=== PATIENT | male | born 1995 | race Caucasian/White ===

== ENCOUNTER 2023-05-24 02:24 | Observation (INO) | payer OTHER, SELFPAY ==
[2023-05-24] VITALS (8 sets, daily range): BP systolic 122–174; BP diastolic 55–77; PULSE 63–88; RESP 14–26; TEMP 37.1–38; O2SAT 97–100; BMI 21.2
--- NOTE | ~2023-05-24 | CT_ITS ---
CT of the Abdomen and Pelvis: Indication: Abdominal pain Technique: 2.5 mm axial scans were obtained through the abdomen and pelvis following intravenous adm inistration of 100 cc of Omnipaque 350. Dose reduction technique was used on this scan by utilizing a utomated exposure control and iterative reconstruction technique. The dose-length product (DLP) was 3 74.43 mGy-cm. Findings: Scans through the lung bases are unremarkable. The liver, spleen, pancreas, gallbladder, and adrenal glands are within normal limits. Horseshoe kidn ey noted. No hydronephrosis. No evidence of aortic aneurysm. No lymphadenopathy. There is relative distention of the stomach and duodenum with transition point as it passes between t he aorta and SMA. No definite evidence for appendicitis. No abscess or free air. Images through the pelvis were performed. Urinary bladder unremarkable. No pelvic mass seen. No ascit es. Impression: Distended stomach and duodenum with relative transition point at the level of the SMA. Correlate for any possibility of SMA syndrome. Horseshoe kidney noted. Reviewed, dictated and finalized at location M. Impression: Distended stomach and duodenum with relative transition point at the level of t he SMA. Correlate for any possibility of SMA syndrome. Horseshoe kidney noted.
--- NOTE | ~2023-05-24 | XR_ITS ---
EXAMINATION: XR sm bowel follow through [facility] DATE: 05/24/2023 09:31 INDICATION: Worsening abdominal pain with possible small bowel obstruction TECHNIQUE: Clock Maker radiograph(s) of the abdomen was/were obtained. Oral contrast was administered, and 3 sequential radiographs of the abdomen were obtained until oral contrast was noted to be in the pro ximal colon. COMPARISON: CT dated 05/24/2023 FINDINGS: Clock Maker image demonstrates excreted contrast in the bilateral renal collecting systems and the bladder related to the earlier contrast-enhanced CT. No abnormally dilated loops of gas-filled small bowel to suggest obstruction. There is relatively rapid transit of contrast through the majority of the small bowel by 15 minutes, reaching the distal colon by 30 minutes. There is normal caliber and mucosal fo ld pattern throughout the small bowel. IMPRESSION: 1. Normal small bowel follow-through with no bowel obstruction. Reviewed, dictated and finalized at location A.
[2023-05-24 02:53] LABS: Basophils Percent Auto 0.3 % (0.2-1.2); Hematocrit 42.5 % (42.0-52.0); Hemoglobin 14.1 g/dL (14.0-18.0); Immature Granulocyte Absolute 0.01 K/mm3 (0.00-0.031); Immature Granulocyte Percent A 0.1 % (0-0.5); Lymphocytes Absolute Auto 0.42 K/mm3 (0.9-3.2); Lymphocytes Percent Auto 6.1 % (18.3-44.2); Mean Corpuscular HGB Conc 33.2 g/dl (32-36); Mean Corpuscular Hemoglobin 29.6 pg (26-34); Mean Corpuscular Volume 89.1 fl (80-100); Mean Platelet Volume 9.1 fl (7.4-10.4); Monocytes Absolute Auto 0.3 K/mm3 (0.1-0.6); Monocytes Percent Auto 4.2 % (2.6-8.5); Neutrophils Absolute Auto 6.1 K/mm3 (1.3-6.7); Neutrophils Percent Auto 89.3 % (45.5-73.1); Platelet Count Result 332 k/mm3 (150-375); Red Blood Count 4.77 M/mm3 (4.6-6.20); Red Cell Distribution Width 13.4 % (11.5-14.5); White Blood Count 6.9 K/mm3 (4.5-10.0)
[2023-05-24] MEDS: SODIUM CHLORIDE 0.9% IV 1,000 ML 999 ML IV CONT (03:01)
[2023-05-24] MEDS: ONDANSETRON INJ 4 MG/2 ML VIAL IV PUSH ×2 (03:04→20:38)
[2023-05-24 03:05] LABS: Appearance Urine Clear (Clear); Bacteria Urine None Seen /hpf; Bilirubin Urine Negative (Negative); Blood Urine Negative (Negative); Color Urine Dark Yellow (Yellow); Glucose Urine UA Negative (Negative); Ketones Urine 3+ mg/dL (Negative); Leukocyte Esterase Ur Negative LEU/UL (Negative); Need Manual Microscopic Reviewed; Nitrate Urine Negative (Negative); Protein Urine 1+ mg/dL (Negative); Specific Grav Ur 1.028 (1.001-1.035); Squamous Epithelial Cell Urine None seen /hpf (Few); WBC Urine 0-5 /hpf; pH Urine >=9.0 (5.0-9.0)
[2023-05-24 03:07] LABS: Alanine Aminotransferase 25 U/L (6-50); Albumin Level 5.1 g/dL (3.5-5.1); Alkaline Phosphatase 72 U/L (38-126); Anion Gap 13 mmol/L (8-16); Aspartate Amino Transferase 32 U/L (17-59); Bilirubin,Total 0.5 mg/dL (0.2-1.3); Blood Urea Nitrogen 11 mg/dL (9-20); Carbon Dioxide 27 mmol/L (22-30); Chloride 101 mmol/L (98-107); Estimated CRCL calculation 173 ml/min; Estimated Glomerular Filt Rate > 60; Glucose 131 mg/dL (65-110); Lipase 100 U/L (23-300); Potassium 3.7 mmol/L (3.4-5.0); Sodium 141 mmol/L (137-145)
[2023-05-24 03:11] LABS: Add Urine Microscopic? YES
--- NOTE | 2023-05-24 04:37 | ED.GENADULT ---
HPI - General Adult General Chief complaint: Abdominal Pain Stated complaint: abd pain Time Seen by Provider: 05/24/23 02:43 History of Present Illness HPI narrative: Patient 27-year-old gentleman who presents the emergency department with chief complaint of abdominal pain. Patient reports he has a history of seizures takes oxcarbazepine reports that started having pain yesterday and reports that he is concerned that he may have appendicitis. Related Data Allergies Allergy/AdvReac Type Severity Reaction Status Date / Time CEFTRIAXONE SODIUM Allergy Mild Uncoded 11/13/16 02:07 Review of Systems Review of Systems: A 10 system review of systems was completed on the patient and is negative except for what is stated in the HPI. Nursing and ancillary documentation was reviewed. Exam Narrative: GENERAL: Well-appearing, well-nourished, and in no acute distress. HEAD: Normocephalic, atraumatic. EYES: PERRLA and EOMI. ENT: Nares clear, no rhinorrhea or epistaxis. Mucous membranes moist. NECK: Supple. CHEST: Clear to auscultation. No respiratory distress. HEART: Regular rate and rhythm. No murmur heard. Normal peripheral pulses. ABDOMEN: Soft, tenderness to palpation of the right lower quadrant, nondistended, normal active bowel sounds. EXTREMITIES: Normal range of motion. No edema. SKIN: Warm, dry, no rash. NEURO: No focal deficits. Alert and oriented x3. PSYCH: Normal mood and affect. Course Vital Signs Vital signs: Vital Signs Temperature 37.3 C 05/24/23 02:37 Pulse Rate 72 05/24/23 02:37 Respiratory Rate 26 H 05/24/23 02:37 Blood Pressure 158/77 H 05/24/23 02:37 Pulse Oximetry 98 05/24/23 02:37 Temperature 37.3 C 05/24/23 02:37 Pulse Rate 88 05/24/23 05:12 Respiratory Rate 14 05/24/23 05:12 Blood Pressure 134/66 05/24/23 05:12 Pulse Oximetry 97 05/24/23 05:12 Medical Decision Making Vital Signs Vital Signs: Vital Signs Temperature 37.3 C 05/24/23 02:37 Pulse Rate 72 05/24/23 02:37 Respiratory Rate 26 H 05/24/23 02:37 Blood Pressure 158/77 H 05/24/23 02:37 Pulse Oximetry 98 05/24/23 02:37 Temperature 37.3 C 05/24/23 02:37 Pulse Rate 88 05/24/23 05:12 Respiratory Rate 14 05/24/23 05:12 Blood Pressure 134/66 05/24/23 05:12 Pulse Oximetry 97 05/24/23 05:12 Lab Data 05/24/23 02:47 05/24/23 02:47 Labs: Lab Results 05/24/23 Range/Units 02:47 WBC 6.9 (4.5-10.0) K/mm3 RBC 4.77 (4.6-6.20) M/mm3 Hgb 14.1 (14.0-18.0) g/dL Hct 42.5 (42.0-52.0) % MCV 89.1 (80-100) fl MCH 29.6 (26-34) pg MCHC 33.2 (32-36) g/dl RDW 13.4 (11.5-14.5) % Plt Count 332 (150-375) k/mm3 MPV 9.1 (7.4-10.4) fl Immature Gran % (Auto) 0.1 (0-0.5) % Neut % (Auto) 89.3 H (45.5-73.1) % Lymph % (Auto) 6.1 L (18.3-44.2) % [place] % (Auto) 4.2 (2.6-8.5) % Eos % (Auto) 0.0 (0-4.4) % Baso % (Auto) 0.3 (0.2-1.2) % Lymph # (Auto) 0.42 L (0.9-3.2) K/mm3 [place] # (Auto) 0.3 (0.1-0.6) K/mm3 Eos # (Auto) 0.0 (0-0.3) K/mm3 Baso # (Auto) 0.0 (0.0-0.1) K/mm3 Abs Immat Gran (auto) 0.01 (0.00-0.031) K/mm3 Absolute Neuts (auto) 6.1 (1.3-6.7) K/mm3 Absolute Nucleated RBC 0.0 (0.0-0.012) K/mm3 Nucleated RBC % 0.0 (0.0-0.2) % Sodium 141 (137-145) mmol/L Potassium 3.7 (3.4-5.0) mmol/L Chloride 101 (98-107) mmol/L Carbon Dioxide 27 (22-30) mmol/L Anion Gap 13 (8-16) mmol/L BUN 11 (9-20) mg/dL Creatinine 0.60 L (0.7-1.3) mg/dL Estim Creat Clear Calc 173 ml/min Estimated GFR > 60 (59 - ) Glucose 131 H (65-110) mg/dL Calcium 10.0 (8.4-10.2) mg/dL Total Bilirubin 0.5 (0.2-1.3) mg/dL AST 32 (17-59) U/L ALT 25 (6-50) U/L Alkaline Phosphatase 72 (38-126) U/L Total Protein 9.0 H (6.3-8.2) g/dL Albumin 5.1 (3.5-5.1) g/dL Lipase 100 (23-300) U/L Urine Color Dark yellow (Yellow) Urine Appearance Clear (Clear) Urin
[2023-05-24] MEDS: SODIUM CHLORIDE 0.9% IV 1,000 ML 125 ML IV CONT ×2 (06:51→09:43)
--- NOTE | 2023-05-24 07:15 | PM.IMHP ---
H&P: HPI History of Present Illness Date/Time: 05/24/23 07:15 Chief Complaint: Abdominal Pain Narrative: 27 y/o M with history of seizures and anxiety presents here with abdominal pain, imaging shows concerns for superior mesenteric artery syndrome. Patient endorses intermittent lower abdominal pain that started around 8-9 pm last night (05/23) that gradually became worse and more constant. Associated with nausea w/ one episode of emesis, chills, and 2 episodes of small volume diarrhea. No previous episodes of similar pain/presentation. No medications or therapies tried at home. No alleviating or aggravating factors identified by the patient. +Fatigue for the past week, reports it began after his last sz 1 week ago, see below for details. Patient states that he typically has fatigue and increased sleep for 2-3 days after a seizure, 1 week of fatigue is not his usual course. Denies dysuria and urinary frequency. Reports anxiety and agitation due to lack of home medications. Recent 30 lb. weight loss, intentional, however patient feels he lost more weight due to lack of appetite in the last week. Review of Systems Review of Systems: All systems reviewed & are unremarkable except as noted in HPI and below PMFSH Past Medical History Medical History (Updated 05/24/23 @ 10:24 by Lyric Story APRN) Anxiety Seizures Surgical History Surgical History (Updated 05/24/23 @ 10:10 by Lyric Story APRN) H/O elbow surgery Right Family History Family History (Updated 05/24/23 @ 10:11 by Lyric Story APRN) Father Hypertension Mother Fatty liver Thyroid disease Social History Social History (Updated 05/24/23 @ 10:13 by Lyric Story APRN) Social History: Single. 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 Sexual Orientation (if Verbalized by the Patient): Straight or Heterosexual Spiritual care concerns: No Meds Home Medications and Allergies Home Medications Medication Instructions Recorded Confirmed Type alprazolam 1 mg tablet 1 mg PO TID 05/24/23 05/24/23 History fluoxetine 20 mg tablet 20 mg PO DAILY 05/24/23 05/24/23 History oxcarbazepine 300 mg tablet 300 mg PO BID 05/24/23 05/24/23 History Allergies Allergy/AdvReac Type Severity Reaction Status Date / Time CEFTRIAXONE SODIUM Allergy Mild Unknown Uncoded 05/24/23 09:59 Vital Signs Vital Signs - 24 hr 05/24/23 02:37 05/24/23 02:57 05/24/23 05:12 Temperature 99.2 F Pulse Rate 72 78 88 Respiratory Rate 26 H 17 14 Blood Pressure 158/77 H 140/73 134/66 Pulse Oximetry 98 100 97 Exam Const: General: comfortable and no acute distress Eyes: General: appearance normal, both eyes and all related structures Sclera: sclerae normal Resp: Effort & Inspection: normal respiratory effort Auscultation: clear to auscultation bilaterally Cardio: Rate: regular rate Rhythm: regular rhythm GI: GI Palp: Yes Soft to palpation and Yes Tenderness to palpation present (GI) Auscultation: normal bowel sounds Other: +tenderness just inferior to umbilicus and midline. : General: Yes bladder normal to palpation Skin: General skin exam: normal color and no rashes or lesions noted Other: +Pallor Neuro: Speech: normal speech Motor exam (neuro): 5/5 motor strength present throughout Sensory Exam: normal sensation Psych: Mental Status: mental status grossly normal Affect
--- NOTE | 2023-05-24 09:56 | PC.NURSE ---
This patient, Nghia Crockett, was admitted to [facility] Surg Room 310-01. Report received from FRANCISCO Beck. Patient/family oriented to hospital policies and general routines including ID bracelet, bed and alarms, visiting hours, pain management, procedures, bathroom and other care routines, personal items, smoking policy, room service/diet, and visiting hours. Information on how to activate the Rapid Response Team has been discussed. Patient/Family are encouraged to report perceived risks to care and to ask questions if they do not understand what they are told or what they should do.
[2023-05-24] MEDS: OXcarbazepine 300 MG TABLET PO ×2 (11:42→18:46)
--- NOTE | 2023-05-24 12:16 | PM.CNGS ---
Assessment and Plan Assessment and plan (1) Abdominal pain: Qualifiers: Abdominal location: lower abdomen, unspecified Qualified Code(s): R10.30 - Lower abdominal pain, unspecified <LUIS Redmond - Last Filed: 05/24/23 15:56> Code(s): R10.9 - Unspecified abdominal pain <LUIS Redmond - Last Filed: 05/24/23 15:56> Status: Acute <LUIS Redmond - Last Filed: 05/24/23 15:56> Assessment and Plan: Patient presented with lower abdominal pain. CT showed distention of the stomach and duodenum to the level of the SMA, suggesting possible SMA syndrome. Patient was asymptomatic during my evaluation. He had a water soluble small bowel follow that was completely normal with no stricture or obstruction in the area of concern and rapid transit of contrast to the colon. He is moving his bowels and has a completely benign abdominal exam. Will start him on clear liquids and advance his diet as tolerated. No indication for surgical intervention at this time. This is his first episode of having obstructive symptoms with this presentation. If he were to have recurrent symptoms in the future with concerns of possible SMA syndrome, then he may require further workup and referral to a surgeon at a tertiary care facility. Will continue to follow for now. <LUIS Redmond - Last Filed: 05/24/23 15:56> Patient admitted through the emergency room with acute onset of epigastric abdominal pain associated nausea vomiting. Workup for acute appendicitis was negative. However on CT scan there seemed to be a relative transition point where the duodenum across the aorta suggesting a possible SMA syndrome. Patient has not had any previous episodes abdominal pain or bowel obstruction in the past. He does fit the body type for SMA syndrome being very thin. Water-soluble small bowel series this morning showed no evidence of significant small-bowel obstruction. He is not having bowel movements and has no abdominal pain or nausea. We will go ahead advance diet for now. If he continues to have symptoms of abdominal pain, nausea, and emesis with evidence of constriction of the duodenum at the takeoff of the SMA and aorta then referral to vascular surgery or foregut surgeon may be indicated to discuss open or laparoscopic exposure of the SMA and release of the arcuate ligament to treat SMA syndrome. For now there is no need for urgent or emergent management. We will continue expectant management for now. <Rishi Craig MD - Last Filed: 05/24/23 15:52> Assessment and Plan: I have discussed the patient's case and plan of care with Dr. Craig. <LUIS Redmond - Last Filed: 05/24/23 15:56> History of Present Illness Consult details Consult date: 05/24/23 <LUIS Redmond - Last Filed: 05/24/23 15:56> 05/24/23 <Rishi Craig MD - Last Filed: 05/24/23 15:52> Reason for consult: other (Possible SMA syndrome) <LUIS Redmond - Last Filed: 05/24/23 15:56> Requesting physician: Pranav Woods MD <LUIS Redmond - Last Filed: 05/24/23 15:56> Narrative: This is a 27-year-old man with a history of seizures who presented to the emergency department overnight with complaints of lower abdominal pain and vomiting. He developed lower abdominal pain while at a friend's house last night. Onset of pain was around 9:00 p.m. and remained constant. No alleviating factors. He developed nausea and vomiting. Denies any diarrhea or other close contacts with similar symptoms. He denies ever having these symptoms in the past. He was concerned he had appendicitis and presented to the ER for evaluation. Labs were unremarkable. CT scan of the abdomen and pelvis was done with contrast and showed a distended stomach and duodenum with relative transition point at the level of the SMA. He was admitted for further evaluation. NG tube was deferred. Our service was consulted
[2023-05-24] MEDS: ALPRAZolam (*CRX) 0.5 MG TABLET PO ×3 (12:19→20:38)
[2023-05-24 21:07] LABS: Amphetamine Screen Urine Negative (Negative); Barbiturate Screen Urine Negative (Negative); Benzodiazepines Screen Urine Positive (Negative); Cannabinoid Screen Urine Positive (Negative); Cocaine Screen Urine Positive (Negative); Methadone Screen Urine Negative (Negative); Opiate Screen Urine Positive (Negative); Phencyclidine Screen Urine Negative (Negative)
[2023-05-24] MEDS: CALCIUM CARBONATE (TUMS) 500 MG (200 MG ELEMENTAL) PO (22:10)
[2023-05-24] MEDS: BELLADONNA ALK/PHENOB ELIX 10 ML, MAG HYDROX/ALUMINUM HYD/SIMETH 30 ML, LIDOCAINE HCL 2... PO (23:43)
[2023-05-25] MEDS: SODIUM CHLORIDE 0.9% IV 1,000 ML 60 ML IV CONT (00:50)
[2023-05-25] MEDS: ALPRAZolam (*CRX) 0.5 MG TABLET 1 MG PO ×2 (03:44→12:19)
[2023-05-25 06:00] VITALS: BP 116/64; PULSE 62; RESP 14; TEMP 37.4; O2SAT 100
[2023-05-25 06:00] LABS: Hematocrit 38.6 % (42.0-52.0); Hemoglobin 12.5 g/dL (14.0-18.0); Mean Corpuscular HGB Conc 32.4 g/dl (32-36); Mean Corpuscular Hemoglobin 29.1 pg (26-34); Mean Corpuscular Volume 89.8 fl (80-100); Mean Platelet Volume 8.8 fl (7.4-10.4); Platelet Count Result 238 k/mm3 (150-375)
[2023-05-25 06:13] LABS: Anion Gap 8 mmol/L (8-16); Blood Urea Nitrogen 9 mg/dL (9-20); Calcium 8.8 mg/dL (8.4-10.2); Carbon Dioxide 26 mmol/L (22-30); Chloride 106 mmol/L (98-107); Estimated CRCL calculation 173 ml/min; Estimated Glomerular Filt Rate > 60; Glucose 112 mg/dL (65-110); Hemoglobin A1C 5.2 % (<5.7); Lactic Acid Reflex 0.9 mmol/L (0.7-2.0); Potassium 3.5 mmol/L (3.4-5.0); Sodium 140 mmol/L (137-145)
[2023-05-25 08:30] VITALS: O2SAT 98
[2023-05-25] MEDS: OXcarbazepine 300 MG TABLET PO (08:34)
[2023-05-25] MEDS: CALCIUM CARBONATE (TUMS) 500 MG (200 MG ELEMENTAL) PO (08:34)
[2023-05-25] MEDS: ENOXAPARIN 40 MG/0.4 ML SYRINGE SUB-Q (08:39)
[2023-05-25] MEDS: ONDANSETRON INJ 4 MG/2 ML VIAL IV PUSH (10:17)
--- NOTE | 2023-05-25 10:29 | PM.PNGS ---
Progress Note: A&P Assessment and Plan (1) Abdominal pain: Qualifiers: Abdominal location: lower abdomen, unspecified Qualified Code(s): R10.30 - Lower abdominal pain, unspecified Code(s): R10.9 - Unspecified abdominal pain Status: Acute Assessment and Plan: Abdominal pain with nausea vomiting. Now resolved. He may have had a partial small-bowel obstruction from possible SMA syndrome. He has the typical body type for this and lost about 30lb recently. Contrast small-bowel follow-through showed no significant stricture or narrowing of the junction of 3rd and 4th portions of the duodenum as it travels underneath the SMA. No acute surgical management is needed. Not had prior episodes of pain and nausea. I recommended to the patient and his grandmother that increasing his weight maybe 5 to 10 lb may solve this problem. If he continues to have symptoms of possible SMA syndrome been outpatient referral to a vascular surgeon or foregut surgeon for further evaluation would be advisable. Okay for patient to discharge today. He will not need follow-up to see me in the office. Subjective Subjective Date/Time Seen: 05/25/23 10:29 Interval history: Patient is doing better today. Tolerated some solid food yesterday without any difficulty. He did state he had a little bit acid reflux-type heartburn but did not have any pain or nausea after eating. White blood count is normal and chemistry is normal. Exam GI: Other: Abdomen is soft and nondistended. Nontender. Benign. Objective Data Vital Signs Vital Signs: Vital Signs - 24 hr 05/24/23 14:36 05/24/23 22:00 05/24/23 20:00 Temperature 37.7 C H 38.0 C H Pulse Rate 63 64 Respiratory Rate 18 14 Blood Pressure 133/60 174/74 H Pulse Oximetry 98 98 Oxygen Delivery Room Air 05/25/23 06:00 05/25/23 08:30 Temperature 37.4 C Pulse Rate 62 Respiratory Rate 14 Blood Pressure 116/64 Pulse Oximetry 100 98 Oxygen Delivery Room Air Intake/Output Intake/Output: Intake & Output 05/22/23 05/23/23 05/24/23 05/25/23 23:59 23:59 23:59 23:59 Intake Total 3840 618 Output Total 400 Balance 3840 218 Meds/Results Medications: Active Medications Generic Name Dose Route Start Last Admin Trade Name Freq PRN Reason Stop Dose Admin Acetaminophen 650 mg 05/24/23 21:17 Acetaminophen 325 Mg Tablet PO Q4H PRN Mild Pain (1-3) or Fever Alprazolam 1 mg 05/25/23 09:00 05/25/23 03:44 Alprazolam (*Crx) 0.5 Mg Tablet PO 1 mg TID PRN Administration Anxiety Calcium Carbonate 200 mg 05/24/23 20:37 05/25/23 08:34 Calcium Carbonate (Tums) 500 Mg (200 Mg Elemental) PO 200 mg Q6H PRN Administration Indigestion Enoxaparin Sodium 40 mg 05/25/23 09:00 05/25/23 08:39 Enoxaparin 40 Mg/0.4 Ml Syringe SUB-Q 40 mg DAILY SONIA Administration Morphine Sulfate 4 mg 05/24/23 06:33 Morphine Sulfate (*Crx) 4 Mg/Ml Inj IV PUSH Q2H PRN Pain Rated 7-10 Ondansetron HCl 4 mg 05/24/23 06:33 05/25/23 10:17 Ondansetron Inj 4 Mg/2 Ml Vial IV PUSH 4 mg Q4H PRN Administration Nausea Oxcarbazepine 300 mg 05/24/23 17:00 05/25/23 08:34 Oxcarbazepine 300 Mg Tablet PO 300 mg BID SONIA Administration Radiology Results: ITS Impressions Abdomen/Pelvis CT 05/24/23 05:57 Impression: Distended stomach and duodenum with relative transition point at the level of the SMA. Correlate for any possibility of SMA syndrome. Horseshoe kidney noted. Small Bowel X-Ray 05/24/23 09:45 IMPRESSION: 1. Normal small bowel follow-through with no bowel obstruction. Labs Labs: Laboratory Results - last 24 hr 05/24/23 05/25/23 02:47 05:52 WBC 7.0 RBC 4.30 L Hgb 12.5 L Hct 38.6 L MCV 89.8 MCH 29.1 MCHC 32.4 RDW 14.0 Plt Count 238 MPV 8.8 Sodium 140 Potassium 3.5 Chloride 106 Carbon Dioxide 26 Anion Gap 8 B
[2023-05-25] MEDS: MAG HYDROX/AL HYDROX/SIMETH 30 ML UDC PO (11:14)
[2023-05-25] MEDS: FAMOTIDINE 20 MG TABLET PO (11:16)
[2023-05-25 13:51] VITALS: BP 148/61; PULSE 62; RESP 18; TEMP 35.9; O2SAT 99
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
== END 2023-05-25 15:40 | disposition home or self-care (01) ==
LOC: ANHED 03:33 → ANH3MEDSUR 05-25 12:29
PROVIDERS: Student in an Organized Health Care Education/Training Program; Admitting Provider Internal Medicine; Emergency Provider Emergency Medicine; PCP Family Medicine; Visit Provider Internal Medicine
DX: R10.30 Lower abdominal pain, unspecified (principal); R56.9 Unspecified convulsions; Q63.1 Lobulated, fused and horseshoe kidney; F41.9 Anxiety disorder, unspecified; F12.90 Cannabis use, unspecified, uncomplicated; F13.90 Sedative, hypnotic, or anxiolytic use, unspecified, uncomplicated; F11.90 Opioid use, unspecified, uncomplicated; Z79.899 Other long term (current) drug therapy; R63.4 Abnormal weight loss; Z68.21 Body mass index [BMI] 21.0-21.9, adult
CPT/HCPCS: 36415; 74177; 74250; 80048; 80053; 80307; 81001; 83036; 83605; 83690; 85025; 85027; 96361; 96374; 96376; 99285; A9270; G0378; G0379; J1650; J2405; J7030; Q9967

== ENCOUNTER 2023-05-27 03:23 | Emergency (ER) | payer OTHER, SELFPAY ==
[2023-05-27 03:31] VITALS: BP 133/63; PULSE 74; RESP 17; TEMP 36.7; O2SAT 98
--- NOTE | 2023-05-27 04:32 | ED.GENADULT ---
HPI - General Adult General Chief complaint: Seizure Stated complaint: seizure Time Seen by Provider: 05/27/23 03:55 History of Present Illness HPI narrative: This is a 27-year-old male presenting ED with a chief complaint of seizure. Patient states he had a seizure earlier today. 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 Says he gets a funny taste in his mouth and then his roommate heard him and called EMS. Patient takes oxycarbamazepine and alprazolam which he at home. He says he has misses a dose is occasionally. The patient is also complaining of lower abdominal pain which he was evaluated for here on 05/24. There were some concerning findings for SMA syndrome but the patient did a small-bowel follow-through with rapid transit and there were no issues found. Patient was then discharged. He has not followed up. Patient did not seem to understand any of what happened while he was here or what his discharge instructions are. Throughout the interview the patient quickly which is from topic to topic and needs constant redirection. He attributes this to his seizures. When patient was seen in our emergency department 3 days ago his urine was positive for opiates/ benzos/ cocaine / cannabinoids. Patient is requesting to be admitted although he cannot tell me why he wants to be admitted other than he was admitted last time. Related Data Home Medications Medication Instructions Recorded Confirmed fluoxetine 20 mg tablet 20 mg PO DAILY 05/24/23 05/24/23 oxcarbazepine 300 mg tablet 300 mg PO BID 05/24/23 05/24/23 Allergies Allergy/AdvReac Type Severity Reaction Status Date / Time CEFTRIAXONE SODIUM Allergy Mild Unknown Uncoded 05/24/23 09:59 PMFSH Past Medical History Medical History Anxiety Seizures Surgical History Surgical History H/O elbow surgery Right Family History Family History Father Hypertension Mother Fatty liver Thyroid disease Social History Social History Social History: Single. 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 EYES: EOMI, NOSE: Atraumatic NECK: Trachea midline RESPIRATORY: No increased rate of breathing CTAB CARDIOVASCULAR: RRR, ABDOMINAL: abdomen is soft nontender with no guarding or rebound. MUSCULOSKELETAl: No obvious deformities NEURO: Alert. Cranial nerves 2-12 grossly intact. Sensation light touch, motor function cerebellar function intact for 4 extremities. Gait exam was normal. SKIN:: Warm, dry. Normal color PSYCHIATRIC: Normal affect Course Vital Signs Vital signs: Vital Signs Temperature 98.0 F 05/27/23 03:31 Pulse Rate 74 05/27/23 03:31 Respiratory Rate 17 05/27/23 03:31 Blood Pressure 133/63 05/27/23 03:31 Pulse Oximetry 98 05/27/23 03:31 Temperature 98.0 F 05/27/23 03:31 Pulse Rate 74 05/27/23 03:31 Respiratory Rate 17 05/27/23 03:31 Blood Pressure 133/63 05/27/23 03:31 Pulse Oximetry 98 05/27/23 03:31 Medical Decis
[2023-05-27 06:18] LABS: Basophils Percent Auto 0.5 % (0.2-1.2); Eosinophils Absolute Auto 0.1 K/mm3 (0-0.3); Eosinophils Percent Auto 1.4 % (0-4.4); Hematocrit 37.8 % (42.0-52.0); Hemoglobin 12.3 g/dL (14.0-18.0); Immature Granulocyte Absolute 0.02 K/mm3 (0.00-0.031); Immature Granulocyte Percent A 0.2 % (0-0.5); Lymphocytes Absolute Auto 2.01 K/mm3 (0.9-3.2); Lymphocytes Percent Auto 23.9 % (18.3-44.2); Mean Corpuscular HGB Conc 32.5 g/dl (32-36); Mean Corpuscular Hemoglobin 29.1 pg (26-34); Mean Corpuscular Volume 89.4 fl (80-100); Mean Platelet Volume 9.2 fl (7.4-10.4); Monocytes Absolute Auto 0.8 K/mm3 (0.1-0.6); Monocytes Percent Auto 9.4 % (2.6-8.5); Neutrophils Absolute Auto 5.4 K/mm3 (1.3-6.7); Neutrophils Percent Auto 64.6 % (45.5-73.1); Platelet Count Result 234 k/mm3 (150-375); Red Blood Count 4.23 M/mm3 (4.6-6.20); Red Cell Distribution Width 13.9 % (11.5-14.5); White Blood Count 8.4 K/mm3 (4.5-10.0)
[2023-05-27 06:28] LABS: Alanine Aminotransferase 17 U/L (6-50); Albumin Level 4.1 g/dL (3.5-5.1); Alkaline Phosphatase 55 U/L (38-126); Anion Gap 7 mmol/L (8-16); Aspartate Amino Transferase 20 U/L (17-59); Bilirubin,Total 0.3 mg/dL (0.2-1.3); Blood Urea Nitrogen 9 mg/dL (9-20); Calcium 8.8 mg/dL (8.4-10.2); Carbon Dioxide 29 mmol/L (22-30); Chloride 104 mmol/L (98-107); Estimated CRCL calculation 173 ml/min; Estimated Glomerular Filt Rate > 60; Glucose 104 mg/dL (65-110); Lipase 312 U/L (23-300); Potassium 3.5 mmol/L (3.4-5.0); Sodium 140 mmol/L (137-145)
[2023-05-27 07:37] VITALS: PULSE 74; RESP 20; O2SAT 100
== END 2023-05-27 07:39 | disposition home or self-care (01) ==
PROVIDERS: Emergency Provider Emergency Medicine; PCP Family Medicine
DX: R56.9 Unspecified convulsions (principal); R10.30 Lower abdominal pain, unspecified; F41.9 Anxiety disorder, unspecified
CPT/HCPCS: 36415; 80053; 83690; 85025; 99283

== ENCOUNTER 2023-07-22 20:00 | Emergency (ER) | payer OTHER, SELFPAY ==
[2023-07-22] VITALS (9 sets, daily range): BP systolic 131–167; BP diastolic 53–73; PULSE 105–164; RESP 19–27; TEMP 39.3; O2SAT 97–100
--- NOTE | ~2023-07-22 | XR_ITS ---
EXAMINATION: XR chest 1V portable DATE: 07/23/2023 03:37 INDICATION: Seizure. TECHNIQUE: A single frontal view of the chest was obtained. COMPARISON: CT abdomen and pelvis 05/14/2023 FINDINGS: There is no pneumonia, pleural effusion, or pneumothorax. The heart size is normal. IMPRESSION: 1. No acute cardiopulmonary disease. Reviewed, dictated and finalized at location E.
--- NOTE | ~2023-07-22 | CT_ITS ---
EXAMINATION: CT brain wo con DATE: 07/23/2023 02:07 INDICATION: Altered mental status. TECHNIQUE: Computed tomography (CT) of the head was performed without intravenous contrast. The mA wa s adjusted according to patient size. Iterative reconstruction technique was employed. The dose-lengt h product was 681.00 mGy-cm. COMPARISON: Head CT 11/13/2016 FINDINGS: There is no intracranial hemorrhage, acute infarction, or abnormal intracranial mass lesion . The ventricles are normal in size. There is mild mucosal thickening in the paranasal sinuses. The o rbits are normal. The mastoid air cells are normal. IMPRESSION: 1. Normal brain. Reviewed, dictated and finalized at location E. IMPRESSION: 1. Normal brain.
--- NOTE | 2023-07-22 20:30 | ECG_ITS ---
Measurements Intervals [place] Rate: 128 P: 71 ID: 128 QRS: 71 QRSD: 96 T: 65 QT: 301 QTc: 440 Interpretive Statements SINUS TACHYCARDIA LEFT VENTRICULAR HYPERTROPHY AND ST-T CHANGE [VOLTAGE CRITERIA PLUS ST/T ABNORMALITY] ABNORMAL ECG NO PREVIOUS ECG AVAILABLE FOR COMPARISON Electronically Signed On 07-23-2023 8:49:32 CDT by Joe Michel M.D.
[2023-07-22] MEDS: diphenhydrAMINE HCl INJ 50 MG/ML VIAL IM (20:35)
[2023-07-22] MEDS: HALOPERIDOL LACTATE 5 MG/ML VIAL IM (20:35)
[2023-07-22] MEDS: LORazepam INJ (*CRX) 2 MG/ML VIAL IM (20:35)
--- NOTE | 2023-07-22 20:44 | PC.NURSE ---
Pt extremely violent towards staff. Pt thrashing, spitting, and attempting to bite staff. Pt is currently restrained but continues to thrash on stretcher. Pt non verbal expect for screams towards staff. Pt does not respond to any verbal commands.
[2023-07-22 20:46] LABS: Basophils Percent Auto 0.2 % (0.2-1.2); Hematocrit 39.9 % (42.0-52.0); Hemoglobin 13.2 g/dL (14.0-18.0); Immature Granulocyte Absolute 0.15 K/mm3 (0.00-0.031); Immature Granulocyte Percent A 0.7 % (0-0.5); Lymphocytes Absolute Auto 1.72 K/mm3 (0.9-3.2); Lymphocytes Percent Auto 7.9 % (18.3-44.2); Mean Corpuscular HGB Conc 33.1 g/dl (32-36); Mean Corpuscular Hemoglobin 29.6 pg (26-34); Mean Corpuscular Volume 89.5 fl (80-100); Mean Platelet Volume 8.6 fl (7.4-10.4); Monocytes Absolute Auto 1.2 K/mm3 (0.1-0.6); Monocytes Percent Auto 5.5 % (2.6-8.5); Neutrophils Absolute Auto 18.6 K/mm3 (1.3-6.7); Neutrophils Percent Auto 85.7 % (45.5-73.1); Platelet Count Result 557 k/mm3 (150-375); Red Blood Count 4.46 M/mm3 (4.6-6.20); Red Cell Distribution Width 13.6 % (11.5-14.5); White Blood Count 21.8 K/mm3 (4.5-10.0)
--- NOTE | 2023-07-22 20:51 | ED.SEIZURE ---
HPI - Seizure General Chief Complaint: Seizure <Randi Hollingsworth MD - Last Filed: 07/23/23 07:27> Stated Complaint: seizure <Randi Hollingsworth MD - Last Filed: 07/23/23 07:27> Time Seen by Provider: 07/22/23 20:04 <Randi Hollingsworth MD - Last Filed: 07/23/23 07:27> History of Present Illness HPI Narrative: Patient brought to the ER by EMS. EMS and patient's grandmother states that for the past couple days he has been thrashing around and unable to respond to verbal stimuli. He moans every once while saying 'stop that'. At times he also yells. Other than that he cannot answer any questions. Cannot state his name. He is very aggressive and agitated. History limited due to patient's mental status changes. <Randi Hollingsworth MD - Last Filed: 07/23/23 07:27> Related Data Home Medications: Home Medications Medication Instructions Recorded Confirmed fluoxetine 20 mg tablet 20 mg PO DAILY 05/24/23 05/24/23 oxcarbazepine 300 mg tablet 300 mg PO BID 05/24/23 05/24/23 <Randi Hollingsworth MD - Last Filed: 07/23/23 07:27> Allergies/Adverse Reactions: Allergies Allergy/AdvReac Type Severity Reaction Status Date / Time CEFTRIAXONE SODIUM Allergy Mild Unknown Uncoded 05/24/23 09:59 <Randi Hollingsworth MD - Last Filed: 07/23/23 07:27> Review of Systems Review of Systems: Cannot obtain history due to patient's confusion and agitation <Randi Hollingsworth MD - Last Filed: 07/23/23 07:27> ROS unobtainable: Yes unobtainable due to mental status <Randi Hollingsworth MD - Last Filed: 07/23/23 07:27> [facility] Past Medical History Medical History: Medical History Anxiety Seizures <Randi Hollingsworth MD - Last Filed: 07/23/23 07:27> Surgical History Surgical History: Surgical History H/O elbow surgery Right <Randi Hollingsworth MD - Last Filed: 07/23/23 07:27> Family History Family History: Family History Father Hypertension Mother Fatty liver Thyroid disease <Randi Hollingsworth MD - Last Filed: 07/23/23 07:27> Social History Social History: Social History Social History: Single. 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 EYES: Pupils dilated and EOMI. ENT: Nares clear, no rhinorrhea or epistaxis. Mucous membranes moist. NECK: Supple. CHEST: Clear to auscultation. No respiratory distress. HEART: Tachycardic ABDOMEN: Soft, nontender, nondistended. EXTREMITIES: Normal range of motion. No edema. SKIN: Warm, dry, no rash. NEURO: No focal deficits. Alert but unable to assess orientation PSYCH very agitated and violent <Randi Hollingsworth MD - Last Filed: 07/23/23 07:27> Course Course Emergency Course: 07:00 - Patient signed out to me by prior ED physician, Dr. Hollingsworth pending transfer to [facility] versus [facility] 08:30 - EMS at [facility]
[2023-07-22] MEDS: LORazepam INJ (*CRX) 2 MG/ML VIAL IV PUSH (20:55)
[2023-07-22 21:07] LABS: Ethanol < 10 mg/dL (<10)
[2023-07-22 21:09] LABS: Acetaminophen < 10 ug/mL (10-30); Alanine Aminotransferase 20 U/L (6-50); Albumin Level 4.2 g/dL (3.5-5.1); Alkaline Phosphatase 93 U/L (38-126); Anion Gap 9 mmol/L (8-16); Aspartate Amino Transferase 35 U/L (17-59); Bilirubin,Total 0.8 mg/dL (0.2-1.3); Blood Urea Nitrogen 15 mg/dL (9-20); Calcium 9.3 mg/dL (8.4-10.2); Carbon Dioxide 25 mmol/L (22-30); Chloride 108 mmol/L (98-107); Estimated CRCL calculation 126 ml/min; Estimated Glomerular Filt Rate > 60; Glucose 133 mg/dL (65-110); Salicylate < 1.0 mg/dL (2-20); Sodium 142 mmol/L (137-145)
[2023-07-22 21:15] LABS: Appearance Urine Cloudy (Clear); Bacteria Urine None Seen /hpf; Bilirubin Urine Negative (Negative); Blood Urine 2+ (Negative); Color Urine Yellow (Yellow); Glucose Urine UA Negative (Negative); Ketones Urine 2+ mg/dL (Negative); Leukocyte Esterase Ur Negative LEU/UL (Negative); Need Manual Microscopic Reviewed; Nitrate Urine Negative (Negative); Protein Urine 1+ mg/dL (Negative); RBC Urine 0-2 /hpf (0-2); Specific Grav Ur 1.013 (1.001-1.035); Squamous Epithelial Cell Urine None seen /hpf (Few); Urobilinogen Urine 0.2 mg/dL (<2.0); WBC Urine 0-5 /hpf; pH Urine 5.5 (5.0-9.0)
[2023-07-22 21:19] LABS: Add Urine Microscopic? YES; Barbiturate Screen Urine Negative (Negative); Benzodiazepines Screen Urine Positive (Negative)
[2023-07-22 21:20] LABS: Amphetamine Screen Urine Negative (Negative); Cannabinoid Screen Urine Positive (Negative); Methadone Screen Urine Negative (Negative); Opiate Screen Urine Positive (Negative); Phencyclidine Screen Urine Negative (Negative)
[2023-07-22 21:26] LABS: Cocaine Screen Urine Negative (Negative)
[2023-07-22] MEDS: dexmedeTOMIDine 400 MCG/100 ML 400 MCG/100 ML BAG IV CONT (22:07)
--- NOTE | 2023-07-22 22:48 | PC.NURSE ---
Verbal order read back from EDP Dr. Hollingsworth to increase Precedex by 0.2mcg every 15 times till pt is less agitated.
[2023-07-22] MEDS: MIDAZOLAM HCL (*CRX) 2 MG/2 ML VIAL 5 MG IV PUSH (23:32)
[2023-07-23] VITALS (11 sets, daily range): BP systolic 104–138; BP diastolic 50–85; PULSE 60–107; RESP 15–24; TEMP 37.6–38.4; O2SAT 96–100
[2023-07-23] MEDS: levETIRAcetam 1000MG/NACL100ML 1,000 MG/100 ML BAG 400 MG IVPB (00:31)
[2023-07-23] MEDS: cefTRIAXone 2 GM/NS 100 ML 2 GM/100 ML BAG IVPB (01:00)
[2023-07-23 01:25] LABS: Creatine Kinase 9654 U/L (55-170)
[2023-07-23 01:36] LABS: Lactate Dehydrogenase 615 U/L (120-246)
[2023-07-23] MEDS: ACYCLOVIR SODIUM IVPB 800 MG in DEXTROSE 5% IN WATER 250 ML 266 MG IVPB (02:10)
--- NOTE | 2023-07-23 02:26 | PC.NURSE ---
EDP at bedside wanting to initiate removal of restraints one limb at a time. First limb to be removed lower right extremity.
--- NOTE | 2023-07-23 02:51 | PC.NURSE ---
Patient resting calmly with bilateral lower extremities released from restraints.
[2023-07-23] MEDS: SODIUM CHLORIDE 0.9% IV 1,000 ML 999 ML IV CONT ×2 (03:22)
[2023-07-23] MEDS: ACETAMINOPHEN 650 MG SUPPOSITORY RECTAL (03:42)
--- NOTE | 2023-07-23 03:42 | PC.NURSE ---
Spoke with EDP Edel about removal of soft wrist restraints and fluid administration simultaneously. EDP advised to keep soft wrist restraints while fluids are being administered. Patient also unable to follow commands to swallow due to sedation. Tylenol switched to rectal route.
[2023-07-23 04:44] LABS: Influenza A QL RT-PCR Negative (Negative); Influenza B QL RT-PCR Negative (Negative); RSV RNA, RT-PCR Negative (Negative); SARS-CoV-2 RNA PCR Negative (Negative)
[2023-07-23 05:05] LABS: Basophils Percent Auto 0.1 % (0.2-1.2); Hematocrit 31.2 % (42.0-52.0); Hemoglobin 10.6 g/dL (14.0-18.0); Immature Granulocyte Absolute 0.09 K/mm3 (0.00-0.031); Immature Granulocyte Percent A 0.5 % (0-0.5); Lymphocytes Absolute Auto 1.57 K/mm3 (0.9-3.2); Lymphocytes Percent Auto 9.2 % (18.3-44.2); Mean Corpuscular Hemoglobin 29.7 pg (26-34); Mean Corpuscular Volume 87.4 fl (80-100); Mean Platelet Volume 8.6 fl (7.4-10.4); Monocytes Absolute Auto 1.8 K/mm3 (0.1-0.6); Monocytes Percent Auto 10.8 % (2.6-8.5); Neutrophils Absolute Auto 13.5 K/mm3 (1.3-6.7); Neutrophils Percent Auto 79.4 % (45.5-73.1); Platelet Count Result 346 k/mm3 (150-375); Red Blood Count 3.57 M/mm3 (4.6-6.20); Red Cell Distribution Width 13.3 % (11.5-14.5)
[2023-07-23 05:21] LABS: Lactic Acid Reflex 1.1 mmol/L (0.7-2.0)
--- NOTE | 2023-07-23 06:10 | PC.NURSE ---
Spoke with EDP Edel about removing wrist restraints. EDP gives verbal orders to remove restraints one by one and reassess patient closely.
--- NOTE | 2023-07-23 06:31 | PC.NURSE ---
patient resting comfortably; grandmother at bedside.
--- NOTE | 2023-07-23 06:51 | PC.NURSE ---
Patient's grandmother tells this RN that the patient wants to use the restroom. Patient is AOx3 but drowsy. He asks to use a urinal. Initially asks for no help, but then decided he needed it. He is assisted to the bedside and is easily redirected. Patient assisted back into bed where he goes back to sleep. EDP made aware.
--- NOTE | 2023-07-23 07:42 | PC.NURSE ---
bed canceled at [facility] per RN-pt states he wants to be placed at [facility]
== END 2023-07-23 08:41 | disposition short-term general hospital (02) ==
PROVIDERS: Emergency Medicine; Emergency Provider Preventive Medicine Aerospace Medicine; PCP Family Medicine
DX: G40.901 Epilepsy, unspecified, not intractable, with status epilepticus (principal); R50.9 Fever, unspecified; Z20.822 Contact with and (suspected) exposure to COVID-19
CPT/HCPCS: 36415; 70450; 71045; 80053; 80307; 81001; 82550; 83605; 83615; 85025; 87040; 87637; 93005; 96365; 96366; 96367; 96372; 96375; 99285; A9270; J0133; J0696; J1200; J1630; J1953; J2060; J2250; J2704; J7030; J7060

== ENCOUNTER 2024-04-14 13:32 | Emergency (ER) | payer OTHER, SELFPAY ==
--- NOTE | ~2024-04-14 | XR_ITS ---
XR shoulder LT min 2V 04/14/2024 14:20 INDICATION: Left shoulder pain PROCEDURE: 4 views left shoulder COMPARISON: No prior studies for comparison. FINDINGS: Fracture, dislocation or subluxation is not identified. The soft tissues appear within norm al limits. No foreign bodies are identified. IMPRESSION: 1: NO ACUTE BONE OR JOINT ABNORMALITY IDENTIFIED. Reviewed, dictated and finalized at location B.
[2024-04-14 13:43] VITALS: BP 137/65; PULSE 97; RESP 16; TEMP 37.1; O2SAT 98
--- NOTE | 2024-04-14 15:41 | ED.UPPEXIN ---
HPI - Extremity Injury (Upper) General Chief Complaint: Extremity Injury, Upper Stated Complaint: left shoulder pain Time Seen by Provider: 04/14/24 14:23 Source: patient, family (Mother) and RN notes reviewed Mode of arrival: ambulatory Limitations: other (Seizure disorder) History of Present Illness HPI narrative: Patient presents today complaining of severe left shoulder pain since yesterday. Denies any known injury or trauma. No numbness or tingling in the arm or hand. Currently rates his pain 9/10 and has tried no [id number] treatment prior to arrival. Pain significantly increases with any movement. Mother states patient does have some memory issues due to his seizure disorder. Related Data Home Medications Medication Instructions Recorded Confirmed escitalopram oxalate 20 mg tablet mg 04/14/24 hydroxyzine HCl 25 mg tablet mg 04/14/24 lacosamide 100 mg tablet 100 mg PO BID 04/14/24 04/14/24 mirtazapine 7.5 mg tablet 7.5 mg PO HS 04/14/24 04/14/24 trazodone 150 mg tablet 150 mg PO PRN PRN Sleep 04/14/24 04/14/24 zonisamide 100 mg capsule 200 mg PO HS 04/14/24 04/14/24 Allergies Allergy/AdvReac Type Severity Reaction Status Date / Time CEFTRIAXONE SODIUM Allergy Mild Unknown Uncoded 04/14/24 13:42 Review of Systems Review of Systems: CONSTITUTIONAL: Denies body aches, fever, chills, or sweats. EYES: Denies visual changes, redness, or discharge. ENT: Denies rhinorrhea, congestion, sore throat, or otalgia. CARDIOVASCULAR: Denies chest pain, palpitations, or edema. RESPIRATORY: Denies cough or dyspnea. GASTROINTESTINAL: Denies abdominal pain, nausea, vomiting, or diarrhea. GENITOURINARY: Denies dysuria or hematuria. SKIN: Denies rash, itching, or wounds. MUSCULOSKELETAL: Denies back pain, or myalgia.+ left shoulder pain NEUROLOGIC: Denies headache, numbness, tingling, or weakness. PSYCH: Denies depression or anxiety. [facility] Past Medical History Medical History Anxiety Seizures Surgical History Surgical History H/O elbow surgery Right Family History Family History Father Hypertension Mother Fatty liver Thyroid disease Social History Social History Social History: Single. 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 Please see nursing chart for further information. There is no relevant family history pertinent to the presenting complaint Exam Narrative: GENERAL: Well-appearing, well-nourished, and in no acute distress. HEAD: Normocephalic, atraumatic. EYES: EOMI. No redness or drainage. Conjunctivae normal. ENT: Mucous membranes pink and moist. NECK: Normal AROM. CHEST: No respiratory distress. EXTREMITIES: Left shoulder: Tenderness to the anterior and lateral shoulder. Pain at 45? movement in all directions. Slight movement of internal and external rotation elicits pain as well. Distal sensation intact. Capillary refill normal. Radial pul
== END 2024-04-14 14:42 | disposition home or self-care (01) ==
PROVIDERS: Emergency Provider Nurse Practitioner
DX: M25.512 Pain in left shoulder (principal); G40.909 Epilepsy, unspecified, not intractable, without status epilepticus
CPT/HCPCS: 73030; 99213; G0463

== ENCOUNTER 2024-04-27 20:15 | Observation (INO) | payer OTHER, SELFPAY ==
--- NOTE | ~2024-04-27 | XR_ITS ---
EXAMINATION: XR small bowel follow through DATE: 04/29/2024 13:08 INDICATION: Abdominal pain. TECHNIQUE: Oral contrast was administered, and a time course of radiographs of the abdomen was obtain ed. Fluoroscopy of the small bowel was not performed. Fluoroscopy exposure time was 0 minutes. The to monroe number of images was 2. COMPARISON: CT abdomen and pelvis 04/27/2024 FINDINGS: There are no dilated loops of bowel. Transit time from the stomach to proximal colon was approximatel y 15 minutes. IMPRESSION: 1. Normal bowel gas pattern. Reviewed, dictated and finalized at location A.
--- NOTE | ~2024-04-27 | CT_ITS ---
EXAMINATION: CT brain wo con DATE: 04/27/2024 21:38 INDICATION: Seizure. Persistent nausea and vomiting. TECHNIQUE: Computed tomography (CT) of the head was performed without intravenous contrast. The mA wa s adjusted according to patient size. Iterative reconstruction technique was employed. Exam dose: 68 1.00 mGy-cm total exam DLP. COMPARISON: 07/23/2023 CT brain, reported normal FINDINGS: No intracranial mass lesion or hemorrhage or cerebrovascular accident. No encephalomalacia. No midline shift or mass effect. Normal howell-white matter differentiation. Normal ventricular size. No subdural or epidural hematoma. The orbital contents are unremarkable. Paranasal sinuses and mastoid air cells are normally developed and aerated. No fracture or bone destruction of the cranial vault. IMPRESSION: Negative examination Reviewed, dictated and finalized at Location A. Reviewed, dictated and finalized at location J. IMPRESSION: Negative examination
--- NOTE | ~2024-04-27 | CT_ITS ---
EXAMINATION: CT abdomen pelvis w con DATE: 04/27/2024 21:42 INDICATION: Abdominal pain, nausea and vomiting. TECHNIQUE: Computed tomography (CT) of the abdomen and pelvis was performed with 100 CC Omnipaque 350 intravenous contrast. Automated exposure control and iterative reconstruction technique were employe d. Exam dose: 1211.65 mGy-cm total exam DLP. COMPARISON: 05/24/2023 CT abdomen pelvis FINDINGS: The lung bases are clear. Normal heart size. No pericardial or pleural effusion. The liver, gallbladder, bile ducts, spleen, pancreas and pancreatic duct as well has the adrenal glan ds are normal. Horseshoe kidney. No renal mass lesion or urinary tract calculus or hydroureteronephrosis. Normal caliber of the abdominal aorta. No intraperitoneal or retroperitoneal or pelvic mass lesion or adenopathy or ascites is detected. The urinary bladder, prostate gland and seminal vesicles are unremarkable. Fluid levels in the stomach and fluid level and mild distention of the duodenum; there is diminished dimension of the duodenum between the abdominal aorta and superior mesenteric artery. Consider SMA sy ndrome. There are scattered fluid levels however in the jejunum. Consider enteritis. No bowel obstruction or intraperitoneal free air is noted otherwise. No inflammatory change is noted within the abdomen or pelvis. Included skeletal structures are unremarkable. IMPRESSION: Fluid levels in the stomach and fluid level and distention of the duodenum proximal to p assage behind the superior mesenteric artery; consider SMA syndrome Fluid levels are noted in the jejunum, without abnormal dilatation; consider enteritis or mild adynam ic ileus Otherwise no obstruction or intraperitoneal free air Horseshoe kidney Reviewed, dictated and finalized at Location A. Reviewed, dictated and finalized at location J. IMPRESSION: Fluid levels in the stomach and fluid level and distention of the duodenum proximal to passage behind the superior mesenteric artery; consider SM A syndrome Fluid levels are noted in the jejunum, without abnormal dilatation; consider en teritis or mild adynamic ileus Otherwise no obstruction or intraperitoneal free air Horseshoe kidney
--- NOTE | ~2024-04-27 | XR_ITS ---
Portable chest x-ray Comparison: 07/23/2023 Clinical History: Fever Findings: Lungs are clear, without focal consolidation or pleural effusion. Cardiomediastinal silho uette is stable. Bones and soft tissues are unremarkable. Impression: Normal chest. Reviewed, dictated and finalized at [facility]. Impression: Normal chest.
[2024-04-27 20:14] VITALS: BP 137/96; PULSE 135; RESP 24; TEMP 36.6; O2SAT 95
[2024-04-27 20:27] VITALS: O2SAT 98
[2024-04-27 20:28] VITALS: PULSE 110
[2024-04-27 21:11] LABS: Basophils Absolute Auto 0.1 K/mm3 (0.0-0.1); Basophils Percent Auto 0.2 % (0.2-1.2); Eosinophils Percent Auto 0.1 % (0-4.4); Hematocrit 42.9 % (42.0-52.0); Immature Granulocyte Absolute 0.24 K/mm3 (0.00-0.031); Immature Granulocyte Percent A 0.9 % (0-0.5); Lymphocytes Absolute Auto 1.64 K/mm3 (0.9-3.2); Lymphocytes Percent Auto 6.3 % (18.3-44.2); Mean Corpuscular Hemoglobin 29.2 pg (26-34); Mean Corpuscular Volume 83.6 fl (80-100); Mean Platelet Volume 9.1 fl (7.4-10.4); Monocytes Absolute Auto 1.5 K/mm3 (0.1-0.6); Monocytes Percent Auto 5.7 % (2.6-8.5); Neutrophils Absolute Auto 22.6 K/mm3 (1.3-6.7); Neutrophils Percent Auto 86.8 % (45.5-73.1); Platelet Count Result 545 k/mm3 (150-375); Red Blood Count 5.13 M/mm3 (4.6-6.20); Red Cell Distribution Width 13.6 % (11.5-14.5)
[2024-04-27] MEDS: ONDANSETRON INJ 4 MG/2 ML VIAL IV PUSH (21:15)
[2024-04-27] MEDS: SODIUM CHLORIDE 0.9% IV 1,000 ML 999 ML IV CONT ×3 (21:15→22:41)
[2024-04-27] MEDS: levETIRAcetam 1000MG/NACL100ML 1,000 MG/100 ML BAG 400 MG IVPB (21:15)
[2024-04-27 21:20] LABS: Albumin Level 5.1 g/dL (3.5-5.1); Alkaline Phosphatase 80 U/L (38-126); Anion Gap 26 mmol/L (4-12); Aspartate Amino Transferase 30 U/L (17-59); Bilirubin,Total 0.5 mg/dL (0.2-1.3); Blood Urea Nitrogen 18 mg/dL (9-20); Carbon Dioxide 13 mmol/L (22-30); Chloride 96 mmol/L (98-107); Estimated CRCL calculation 99 ml/min; Estimated Glomerular Filt Rate > 60; Glucose 178 mg/dL (65-110); Lipase 197 U/L (23-300); Magnesium 3.1 mg/dL (1.6-2.3); Potassium 2.7 mmol/L (3.4-5.0); Sodium 135 mmol/L (137-145)
[2024-04-27 21:23] LABS: Amphetamine Screen Urine Negative (Negative); Barbiturate Screen Urine Negative (Negative); Benzodiazepines Screen Urine Negative (Negative); Cannabinoid Screen Urine Positive (Negative); Cocaine Screen Urine Negative (Negative); Methadone Screen Urine Negative (Negative); Opiate Screen Urine Negative (Negative); Phencyclidine Screen Urine Negative (Negative)
[2024-04-27 21:24] LABS: Alanine Aminotransferase 33 U/L (6-50)
[2024-04-27 21:31] LABS: Add Urine Microscopic? YES; Appearance Urine Cloudy (Clear); Bacteria Urine None Seen /hpf; Bilirubin Urine Negative (Negative); Blood Urine 1+ (Negative); Color Urine Yellow (Yellow); Glucose Urine UA Negative (Negative); Ketones Urine Trace mg/dL (Negative); Leukocyte Esterase Ur Negative LEU/UL (Negative); Mucus Urine Present /lpf; Need Manual Microscopic Reviewed; Nitrate Urine Negative (Negative); Protein Urine 2+ mg/dL (Negative); RBC Urine 0-2 /hpf (0-2); Specific Grav Ur 1.013 (1.001-1.035); Squamous Epithelial Cell Urine Occasional /hpf (Few); Uric Acid Crystals Urine Present /hpf; Urobilinogen Urine 0.2 mg/dL (<2.0); WBC Urine 0-5 /hpf (0-3); pH Urine 5.5 (5.0-9.0)
[2024-04-27 21:44] LABS: Ethanol < 10 mg/dL (<10)
[2024-04-27 21:46] LABS: Lactic Acid Reflex 5.3 mmol/L (0.7-2.0)
--- NOTE | 2024-04-27 22:00 | ED.GENADULT ---
HPI - General Adult General Chief complaint: Seizure Stated complaint: SEIZURE; POST ICTAL Time Seen by Provider: 04/27/24 20:38 History of Present Illness HPI narrative: patient 28-year-old gentleman who presents emergency department chief complaint seizures. Patient reports he had 2 seizures today reports that he has been difficult taking his medications over the last several days has had abdominal pain and nausea and vomiting. The patient reports that he feels very dry of reports that he is having abdominal discomfort. Related Data Home Medications Medication Instructions Recorded Confirmed escitalopram oxalate 20 mg tablet mg 04/14/24 hydroxyzine HCl 25 mg tablet mg 04/14/24 lacosamide 100 mg tablet 100 mg PO BID 04/14/24 04/14/24 mirtazapine 7.5 mg tablet 7.5 mg PO HS 04/14/24 04/14/24 trazodone 150 mg tablet 150 mg PO PRN PRN Sleep 04/14/24 04/14/24 zonisamide 100 mg capsule 200 mg PO HS 04/14/24 04/14/24 Allergies Allergy/AdvReac Type Severity Reaction Status Date / Time CEFTRIAXONE SODIUM Allergy Mild Unknown Uncoded 04/14/24 13:42 Review of Systems Review of Systems: A 10 system review of systems was completed on the patient and is negative except for what is stated in the HPI. Nursing and ancillary documentation was reviewed. [facility] Past Medical History Medical History Anxiety Seizures Surgical History Surgical History H/O elbow surgery Right Family History Family History Father Hypertension Mother Fatty liver Thyroid disease Social History Social History Social History: Single. 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 HEAD: Normocephalic, atraumatic. EYES: PERRLA and EOMI. ENT: Nares clear, no rhinorrhea or epistaxis. Mucous membranes moist. NECK: Supple. CHEST: Clear to auscultation. No respiratory distress. HEART: Regular rate and rhythm. No murmur heard. Normal peripheral pulses. ABDOMEN: Soft, nontender, nondistended, normal active bowel sounds. EXTREMITIES: Normal range of motion. No edema. SKIN: Warm, dry, no rash. NEURO: No focal deficits. Alert and oriented x3. PSYCH: Normal mood and affect. Course Vital Signs Vital signs: Vital Signs Temperature 36.6 C 04/27/24 20:14 Pulse Rate 135 H 04/27/24 20:14 Respiratory Rate 24 H 04/27/24 20:14 Blood Pressure 137/96 H 04/27/24 20:14 Pulse Oximetry 95 04/27/24 20:14 Temperature 39.3 C H 04/27/24 23:17 Pulse Rate 88 04/27/24 23:17 Respiratory Rate 18 04/27/24 23:17 Blood Pressure 137/96 H 04/27/24 20:14 Pulse Oximetry 97 04/27/24 23:17 Oxygen Delivery Room Air 04/27/24 20:27 Medical Decision Making [facility] Narrative Medical decision making narrative: differential diagnosis includes electrolyte abnormality, dehydration, intra-abdominal infection, sepsis, noncompliance, breakthrough seizures laboratory studies were obtained on the patient showed a leukocytosis white count of 26.0 electroly
[2024-04-27] MEDS: POTASSIUM CHLORIDE 20 MEQ PACKET (FOR LIQUID) 40 MEQ PO (22:19)
[2024-04-27] MEDS: KCL 20 MEQ/SW 100 ML 100 ML 50 MEQ IVPB (22:39)
[2024-04-27] MEDS: PROCHLORPERAZINE EDISYLATE 10 MG/2 ML VIAL IV PUSH (22:39)
[2024-04-27 23:17] VITALS: PULSE 88; RESP 18; TEMP 39.3; O2SAT 97
[2024-04-27] MEDS: ACETAMINOPHEN 500 MG TABLET 1000 MG PO (23:25)
[2024-04-28] VITALS (13 sets, daily range): BP systolic 127–144; BP diastolic 55–75; PULSE 66–94; RESP 14–18; TEMP 36.3–37.6; O2SAT 95–99; BMI 26.9
[2024-04-28 00:30] LABS: Reflex Lactic Acid Yes or No Add Lactic
[2024-04-28] MEDS: POTASSIUM CHLORIDE INJ 40 MEQ in SODIUM CHLORIDE 0.9% IV 500 ML 130 MEQ IVPB (00:48)
[2024-04-28] MEDS: PIPERACILLN/TAZ 3.375GM/NS50ML 3.375 GM/50 ML BAG IVPB ×4 (00:53→17:33)
[2024-04-28 00:55] LABS: Influenza A QL RT-PCR Negative (Negative); Influenza B QL RT-PCR Negative (Negative); RSV RNA, RT-PCR Negative (Negative); SARS-CoV-2 RNA PCR Negative (Negative)
[2024-04-28 01:10] LABS: Lactic Acid 0.8 mmol/L (0.7-2.0)
--- NOTE | 2024-04-28 01:58 | ADMGEN ---
This patient, Nghia Crockett, was admitted to Medical Room 346-01. Patient/family oriented to hospital policies and general routines including ID bracelet, bed and alarms, visiting hours, pain management, procedures, bathroom and other care routines, personal items, smoking policy, room service/diet, and visiting hours. Information on how to activate the Rapid Response Team has been discussed. Patient/Family are encouraged to report perceived risks to care and to ask questions if they do not understand what they are told or what they should do.
[2024-04-28] MEDS: SODIUM CHLORIDE 0.9% IV 1,000 ML 125 ML IV CONT ×2 (02:13→12:09)
[2024-04-28] MEDS: levETIRAcetam IV 750 MG in DEXTROSE 5% 100 ML 430 MG IVPB ×2 (08:39→20:02)
[2024-04-28 11:17] LABS: Basophils Percent Auto 0.1 % (0.2-1.2); Hematocrit 39.9 % (42.0-52.0); Hemoglobin 12.8 g/dL (14.0-18.0); Immature Granulocyte Absolute 0.07 K/mm3 (0.00-0.031); Immature Granulocyte Percent A 0.4 % (0-0.5); Lymphocytes Percent Auto 12.6 % (18.3-44.2); Mean Corpuscular HGB Conc 32.1 g/dl (32-36); Mean Corpuscular Hemoglobin 28.5 pg (26-34); Mean Corpuscular Volume 88.9 fl (80-100); Mean Platelet Volume 8.7 fl (7.4-10.4); Monocytes Percent Auto 12.2 % (2.6-8.5); Neutrophils Absolute Auto 12.5 K/mm3 (1.3-6.7); Neutrophils Percent Auto 74.7 % (45.5-73.1); Platelet Count Result 359 k/mm3 (150-375); Red Blood Count 4.49 M/mm3 (4.6-6.20); White Blood Count 16.7 K/mm3 (4.5-10.0)
[2024-04-28 11:49] LABS: Alanine Aminotransferase 21 U/L (6-50); Albumin Level 3.8 g/dL (3.5-5.1); Alkaline Phosphatase 67 U/L (38-126); Anion Gap 11 mmol/L (4-12); Aspartate Amino Transferase 28 U/L (17-59); Bilirubin,Total 0.7 mg/dL (0.2-1.3); Blood Urea Nitrogen 13 mg/dL (9-20); Calcium 8.4 mg/dL (8.4-10.2); Carbon Dioxide 19 mmol/L (22-30); Chloride 109 mmol/L (98-107); Estimated CRCL calculation 163 ml/min; Estimated Glomerular Filt Rate > 60; Glucose 108 mg/dL (65-110); Magnesium 2.6 mg/dL (1.6-2.3); Potassium 3.5 mmol/L (3.4-5.0); Sodium 139 mmol/L (137-145)
--- NOTE | 2024-04-28 13:06 | PC.NURSE ---
Patient continues to remove telemetry leads. Patient has been educated patient on importance of monitoring.
--- NOTE | 2024-04-28 17:11 | PC.NURSE ---
Patient is on seizure precautions, but keeps removing seizures pads from the bed. Patient has been educated and continues to throw them on the floor.
--- NOTE | 2024-04-28 17:45 | PM.IMHP ---
H&P: HPI History of Present Illness Date/Time: 04/28/24 11:25 Chief Complaint: Seizure episodes. Narrative: Patient presented to the ER with reports of seizure episodes at home. Patient reported that he has been having abdominal discomfort, associated with nausea and vomiting, that prevented him from keeping food and medications down, including his seizure medications. Patient admits to smoking marijuana almost daily for > 10 years, and doesn't believe that's the cause of his symptoms. Patient denies any fevers, denies recent travels, denies trying any new foods, and denies any bloody emesis or bloody diarrhea and denies sick contacts. Review of Systems Review of Systems: A 10 system review of systems was completed on the patient and is negative except for what is stated in the HPI. Nursing and ancillary documentation was reviewed. [facility] [place] Past Medical History Medical History Anxiety Seizures Surgical History Surgical History H/O elbow surgery Right Family History Family History Father Hypertension Mother Fatty liver Thyroid disease Social History Social History Social History: Single. 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 Sexual Orientation (if Verbalized by the Patient): Straight or Heterosexual Spiritual care concerns: No Meds Home Medications and Allergies Home Medications Medication Instructions Recorded Confirmed Type escitalopram oxalate 20 mg tablet 10 mg PO DAILY 04/14/24 04/28/24 History hydroxyzine HCl 25 mg tablet 25 mg PO TID PRN Anxiety 04/14/24 04/28/24 History lacosamide 100 mg tablet 100 mg PO BID 04/14/24 04/28/24 History mirtazapine 7.5 mg tablet 7.5 mg PO HS 04/14/24 04/28/24 History trazodone 150 mg tablet 150 mg PO PRN PRN Sleep 04/14/24 04/28/24 History zonisamide 100 mg capsule 200 mg PO HS 04/14/24 04/28/24 History Allergies Allergy/AdvReac Type Severity Reaction Status Date / Time CEFTRIAXONE SODIUM Allergy Mild Unknown Uncoded 04/28/24 02:19 Vital Signs Vital Signs - 24 hr 04/27/24 20:14 04/27/24 20:27 04/27/24 20:28 Temperature 97.9 F Pulse Rate 135 H 110 H Respiratory Rate 24 H Blood Pressure 137/96 H Pulse Oximetry 95 98 Oxygen Delivery Room Air 04/27/24 23:17 04/28/24 00:59 04/28/24 01:58 Temperature 102.7 F H 99.1 F 99.1 F Pulse Rate 88 94 88 Respiratory Rate 18 16 18 Blood Pressure 127/75 141/63 H Pulse Oximetry 97 98 97 Oxygen Delivery 04/28/24 02:21 04/28/24 01:40 04/28/24 04:02 Temperature 99.1 F 99.6 F Pulse Rate 86 79 Respiratory Rate 18 Blood Pressure 139/64 Pulse Oximetry 95 Oxygen Delivery 04/28/24 04:00 04/28/24 05:45 04/28/24 14:00 Temperature 98.9 F 97.9 F Pulse Rate 86 81 Respiratory Rate 14 Blood Pressure 144/61 H Pulse Oximetry 98 Oxygen Delivery 04/28/24 08:00 04/28/24 12:00 04/28/24 16:00 Temperature Pulse Rate 74 76 74 Respiratory Rate Blood Pressure Pulse Oximetry Oxygen Delivery Exam Narrative: HEENT: Atraumatic, PERRL. Neck: Supple. Respiratory: Lungs clear bilaterally. Cardiovascular: RRR, S1S2 GI: Soft, non-
[2024-04-28] MEDS: PANTOPRAZOLE SODIUM IV 40 MG VIAL IV PUSH (20:02)
[2024-04-29] VITALS (9 sets, daily range): BP systolic 110–149; BP diastolic 55–70; PULSE 63–89; RESP 16–20; TEMP 36.3–36.9; O2SAT 96–100
[2024-04-29] MEDS: PIPERACILLN/TAZ 3.375GM/NS50ML 3.375 GM/50 ML BAG IVPB ×5 (00:07→23:41)
[2024-04-29] MEDS: SODIUM CHLORIDE 0.9% IV 1,000 ML 125 ML IV CONT ×2 (03:42→17:53)
[2024-04-29] MEDS: ENOXAPARIN 40 MG/0.4 ML SYRINGE SUB-Q (09:04)
[2024-04-29] MEDS: PANTOPRAZOLE SODIUM IV 40 MG VIAL IV PUSH ×2 (09:04→20:29)
[2024-04-29] MEDS: levETIRAcetam IV 750 MG in DEXTROSE 5% 100 ML 430 MG IVPB (09:05)
--- NOTE | 2024-04-29 09:14 | P.CONGI_ITS ---
I, Juve Mackey MD, have provided a substantive portion of the care of this patient and discussed the patient with my Nurse Practitioner. I have reviewed any new relevant radiographic and laboratory results including medications. I agree with her documentation as noted below.?I personally performed the medical decision making and much of the history and exam for this encounter. briefly, he has known history of seizures but apparently last few days did not take his medications because some abdominal discomfort. Last year imaging suggested possible SMA, since he was advised to gain weight. He does not remember recent EGD. He is doing better now, no abdominal discomfort or nausea, ok to advance diet and monitor. Pending SBFT, based on hospital course may re commend EGD. Assessment and Plan Assessment and plan (1) Abdominal pain: Qualifiers: Abdominal location: generalized Qualified Code(s): R10.84 - Generalized abdominal pain Code(s): R10.9 - Unspecified abdominal pain Status: Acute (2) Nausea and vomiting: Qualifiers: Vomiting type: bilious vomiting Qualified Code(s): R11.14 - Bilious vo miting Code(s): R11.2 - Nausea with vomiting, unspecified Status: Acute (3) Enteritis: Code(s): K52.9 - Noninfective gastroenteritis and colitis, unspecified Status: Acute (4) Abnormal digestive system diagnostic imaging: Code(s): R93.3 - Abnormal findings on diagnostic imaging of other parts of digestive tract Status: Acute Plan 1. Abdominal pain / nausea / vomiting/abnormal imaging digesti ve/enteritis/possible SMA: CT 04/27/2024 showed fluid levels in the stomach and duodenum with diminished dimension of the duodenum between the aorta and SMA, consider SMA syndrome vs enteritis vs adynamic ileus. Patient was admitted last year for similar presentation, small bowel follow through at that time showed no stricture or narrowing at the duodenum. Patient advised to gain 5-10 lb by surgery at that time. Reports 15-20 lb weight loss recently. Abdominal exam benign. Patient admits that after seizures his has some confusion and memory issues. He denies any abdominal pain since admission. Admits to nausea and vomiting yesterday. Prior to admission he states he was having regular formed and non urgent BM's daily and denies any recent change in bowel habits. Tolerating PO intake. labs on admission showed WBC 17, HGB 13, HCT 40, MCV 89, platelets 159. BMP, LFTs, and lipase normal. Blood cultures pending. * check small bowel follow through * continue supportive care with pain management and antiemetics but avoid narcotics * Patient on Zosyn, continue * Consider nutrition consult if unable to gain weight Thank you very much for allowing me to share in the care of this very nice patient. This report may have been done utilizing a voice recognition system. Attempts have been made to correct errors. However, there may be uncorrected grammatical, spelling, and recognition errors present. GI Consult Note Consult date/time: 04/29/24 09:14 Reason for consult: Possible SMA vs enteritis vs adynamic ileus HPI: This is a pleasant 28 year old male with a past medical surgical history of seizures and anxiety who presented to the ER room 04/27/2024 with complaints of seizures. GI consulted for possible SMA syndrome vs enteritis vs adynamic ileus. Patient was admitted 05/24/2023-05/25/2023 last year with complaints of abdominal pain and nausea. There was thought at that time that there may be a small bowel obstruction from possible SMA syndrome. Contrast small b
--- NOTE | 2024-04-29 09:14 | WPDGICN ---
Assessment and Plan Assessment and plan (1) Abdominal pain: Qualifiers: Abdominal location: generalized Qualified Code(s): R10.84 - Generalized abdominal pain Code(s): R10.9 - Unspecified abdominal pain Status: Acute (2) Nausea and vomiting: Qualifiers: Vomiting type: bilious vomiting Qualified Code(s): R11.14 - Bilious vomiting Code(s): R11.2 - Nausea with vomiting, unspecified Status: Acute (3) Enteritis: Code(s): K52.9 - Noninfective gastroenteritis and colitis, unspecified Status: Acute (4) Abnormal digestive system diagnostic imaging: Code(s): R93.3 - Abnormal findings on diagnostic imaging of other parts of digestive tract Status: Acute Plan 1. Abdominal pain / nausea / vomiting/abnormal imaging digestive/enteritis/possible SMA: CT 04/27/2024 showed fluid levels in the stomach and duodenum with diminished dimension of the duodenum between the aorta and SMA, consider SMA syndrome vs enteritis vs adynamic ileus. Patient was admitted last year for similar presentation, small bowel follow through at that time showed no stricture or narrowing at the duodenum. Patient advised to gain 5-10 lb by surgery at that time. Reports 15-20 lb weight loss recently. Abdominal exam benign. Patient admits that after seizures his has some confusion and memory issues. He denies any abdominal pain since admission. Admits to nausea and vomiting yesterday. Prior to admission he states he was having regular formed and non urgent BM's daily and denies any recent change in bowel habits. Tolerating PO intake. labs on admission showed WBC 17, HGB 13, HCT 40, MCV 89, platelets 159. BMP, LFTs, and lipase normal. Blood cultures pending. check small bowel follow through continue supportive care with pain management and antiemetics but avoid narcotics Patient on Zosyn, continue Consider nutrition consult if unable to gain weight Thank you very much for allowing me to share in the care of this very nice patient. This report may have been done utilizing a voice recognition system. Attempts have been made to correct errors. However, there may be uncorrected grammatical, spelling, and recognition errors present. GI Consult Note Consult date/time: 04/29/24 09:14 Reason for consult: Possible SMA vs enteritis vs adynamic ileus HPI: This is a pleasant 28 year old male with a past medical surgical history of seizures and anxiety who presented to the ER room 04/27/2024 with complaints of seizures. GI consulted for possible SMA syndrome vs enteritis vs adynamic ileus. Patient was admitted 05/24/2023-05/25/2023 last year with complaints of abdominal pain and nausea. There was thought at that time that there may be a small bowel obstruction from possible SMA syndrome. Contrast small bowel follow-through showed no significant stricture or narrowing of the junction of the 3rd and 4th portion of the duodenum as it traveled underneath the SMA. At that time patient was seen by surgery and advised to increase his weight by 5-10 lb. He presented to the emergency room yesterday with chief complaint of seizures following several days of being unable to take his medications due to abdominal pain, nausea and vomiting. Patient admits that his memory is off after he has a seizure so I was unable to verify his subjective information. He denies any abdominal pain at home or during his admission. Admits to nausea and vomiting yesterday. Denies dysphagia. Reports good PO intake at home. Uses Tums as needed for heartburn. Appetite at home was pretty good, felt ramya shaky afterwards. Reports recent 15-20 lb weight loss recently but was unable to say over what period of time. Bowel movements are regular. Denies diarrhea or hematochezia. Denies prior colonoscopy or EGD. Denies prior abdominal surgeries. Denies alcohol use. Denies tobacco use but uses marijuana. Denies family history of GI cancers. Denies chronic
[2024-04-29 10:17] LABS: Basophils Percent Auto 0.4 % (0.2-1.2); Eosinophils Percent Auto 0.4 % (0-4.4); Hematocrit 41.1 % (42.0-52.0); Hemoglobin 13.6 g/dL (14.0-18.0); Immature Granulocyte Absolute 0.02 K/mm3 (0.00-0.031); Immature Granulocyte Percent A 0.2 % (0-0.5); Lymphocytes Absolute Auto 2.44 K/mm3 (0.9-3.2); Lymphocytes Percent Auto 22.7 % (18.3-44.2); Mean Corpuscular HGB Conc 33.1 g/dl (32-36); Mean Corpuscular Hemoglobin 28.9 pg (26-34); Mean Corpuscular Volume 87.4 fl (80-100); Mean Platelet Volume 8.8 fl (7.4-10.4); Monocytes Absolute Auto 1.1 K/mm3 (0.1-0.6); Neutrophils Absolute Auto 7.1 K/mm3 (1.3-6.7); Neutrophils Percent Auto 66.3 % (45.5-73.1); Platelet Count Result 341 k/mm3 (150-375); Red Cell Distribution Width 13.8 % (11.5-14.5); White Blood Count 10.8 K/mm3 (4.5-10.0)
[2024-04-29 10:27] LABS: Alanine Aminotransferase 21 U/L (6-50); Albumin Level 4.1 g/dL (3.5-5.1); Alkaline Phosphatase 68 U/L (38-126); Anion Gap 11 mmol/L (4-12); Aspartate Amino Transferase 29 U/L (17-59); Bilirubin,Total 0.7 mg/dL (0.2-1.3); Blood Urea Nitrogen 11 mg/dL (9-20); Calcium 8.7 mg/dL (8.4-10.2); Carbon Dioxide 20 mmol/L (22-30); Chloride 108 mmol/L (98-107); Estimated CRCL calculation 163 ml/min; Estimated Glomerular Filt Rate > 60; Glucose 110 mg/dL (65-110); Magnesium 2.2 mg/dL (1.6-2.3); Potassium 3.3 mmol/L (3.4-5.0); Sodium 139 mmol/L (137-145)
--- NOTE | 2024-04-29 14:23 | PM.IMPN ---
Progress Note: A&P Assessment and Plan (1) Seizures: Code(s): R56.9 - Unspecified convulsions Status: Acute Assessment and Plan: - No episodes since admission. - CT head negative. - Possibly related to meds non-compliance vs other. - Neurologist consulted for further recommendations. - EEG ordered. - Hold IV Keppra. Restart home meds Zonisamide and lacosamide. - Maintain seizure precautions. (2) Breakthrough seizure: Code(s): G40.919 - Epilepsy, unspecified, intractable, without status epilepticus Status: Acute Assessment and Plan: - Mgt as above. - Neurologist consulted. - Home meds restarted. - Maintain seizure precautions. (3) Abdominal pain: Qualifiers: Abdominal location: generalized Qualified Code(s): R10.84 - Generalized abdominal pain Code(s): R10.9 - Unspecified abdominal pain Status: Acute Assessment and Plan: CT abdomen/Pelvis: Fluid levels in the stomach and fluid level and distention of the duodenum proximal to passage behind the superior mesenteric artery; consider SMA syndrome Fluid levels are noted in the jejunum, without abnormal dilatation; consider enteritis or mild adynamic ileus Otherwise no obstruction or intraperitoneal free air Horseshoe kidney. - Symptoms appear resolved. - Acute viral infection PCR negative. - UA negative. - Suspicion for possible SMA syndrome vs enteritis vs mild adynamic ileus. - Patient with similar symptoms 05/[address] findings. - Pt underwent small bowel follow through 05/16 that showed no stricture or narrowing at the duodenum. - Repeat small bowel follow through ordered per GI. - Tolerating clears fairly and diet advanced per pt request. - Continue supportive care with nausea and pain meds PRN. - IVF discontinued. (4) Nausea and vomiting: Qualifiers: Vomiting type: bilious vomiting Qualified Code(s): R11.14 - Bilious vomiting Code(s): R11.2 - Nausea with vomiting, unspecified Status: Acute Assessment and Plan: - Unclear etiology; Gastroenteritis vs ileus vs vs cannabis hyperemesis syndrome vs SMA syndrome vs other. - Tox screen negative except for cannabinoids. - Much improved. - Diet advanced to regular per patient request. - GI following. - Continue supportive care with nausea meds. - Replace electrolytes as needed. (5) Diarrhea: Code(s): R19.7 - Diarrhea, unspecified Status: Acute Assessment and Plan: - Unclear etiology - Acute viral infection PCR negative. - Possibly bacterial vs food poisoning vs other. - No episodes today. - Diet advanced. - GI following. - Replace electrolytes as needed. (6) Leukocytosis: Code(s): D72.829 - Elevated white blood cell count, unspecified Status: Acute Assessment and Plan: - Possibly reactive do diarrhea and vomiting vs infection vs other. - Much improving with empiric IV abx. - No obvious signs of infection. - Continue empiric IV abx for now. - Monitor trend. (7) Hypermagnesemia: Code(s): E83.41 - Hypermagnesemia Status: Acute Assessment and Plan: - Possibly related to dehydration. - Resolved with IVF hydration. - Continue to monitor closely. (8) Hypokalemia: Code(s): E87.6 - Hypokalemia Status: Acute Assessment and Plan: - Possibly related to diarrhea. - Replace and monitor closely. Plan # FULL-CODE. # DVT PPx: Lovenox. # Diet : Regular. # IV: Peripheral # Anticipated LOS: > Next 1-2 days. Time Spent With Patient Time with patient: 25 - 35 minutes Subjective Date/time seen: 04/29/24 11:25 Interval history: Patient presented to the ER with reports of seizure episodes at home. Patient reported that he has been having abdominal discomfort, associated with nausea, vomiting and diarrhea, within the last 3 days, preventing him from keeping food and medications down, including his seizure medications. Patient admitted
[2024-04-29] MEDS: POTASSIUM CHLORIDE 20 MEQ ER TABLET 40 MEQ PO (17:53)
[2024-04-29] MEDS: MIRTAZAPINE 7.5 MG TABLET PO (20:28)
[2024-04-29] MEDS: traZODone HCL 50 MG TABLET 150 MG PO (20:28)
[2024-04-29] MEDS: LACOSAMIDE (*CRX) 100 MG TABLET BY MOUTH (20:28)
[2024-04-29] MEDS: ZONISAMIDE 100 MG CAPSULE 200 MG PO (20:28)
[2024-04-30] VITALS: PULSE 59
[2024-04-30] MEDS: SODIUM CHLORIDE 0.9% IV 1,000 ML 125 ML IV CONT (03:31)
[2024-04-30 04:00] VITALS: PULSE 71
[2024-04-30] MEDS: PIPERACILLN/TAZ 3.375GM/NS50ML 3.375 GM/50 ML BAG IVPB (05:34)
[2024-04-30 05:54] VITALS: BP 132/72; PULSE 64; RESP 20; TEMP 37.1; O2SAT 99
[2024-04-30 08:00] VITALS: PULSE 68
[2024-04-30] MEDS: LACOSAMIDE (*CRX) 100 MG TABLET BY MOUTH (09:05)
[2024-04-30] MEDS: PANTOPRAZOLE SODIUM IV 40 MG VIAL IV PUSH (09:05)
[2024-04-30] MEDS: ENOXAPARIN 40 MG/0.4 ML SYRINGE SUB-Q (09:05)
[2024-04-30 09:17] LABS: Basophils Absolute Auto 0.1 K/mm3 (0.0-0.1); Basophils Percent Auto 0.6 % (0.2-1.2); Eosinophils Absolute Auto 0.2 K/mm3 (0-0.3); Eosinophils Percent Auto 2.1 % (0-4.4); Hematocrit 38.9 % (42.0-52.0); Hemoglobin 12.7 g/dL (14.0-18.0); Immature Granulocyte Absolute 0.01 K/mm3 (0.00-0.031); Immature Granulocyte Percent A 0.1 % (0-0.5); Lymphocytes Absolute Auto 2.14 K/mm3 (0.9-3.2); Lymphocytes Percent Auto 26.8 % (18.3-44.2); Mean Corpuscular HGB Conc 32.6 g/dl (32-36); Mean Corpuscular Volume 88.8 fl (80-100); Mean Platelet Volume 9.5 fl (7.4-10.4); Monocytes Absolute Auto 0.8 K/mm3 (0.1-0.6); Monocytes Percent Auto 10.1 % (2.6-8.5); Neutrophils Absolute Auto 4.8 K/mm3 (1.3-6.7); Neutrophils Percent Auto 60.3 % (45.5-73.1); Platelet Count Result 298 k/mm3 (150-375); Red Blood Count 4.38 M/mm3 (4.6-6.20); Red Cell Distribution Width 13.7 % (11.5-14.5)
[2024-04-30 09:20] LABS: Alanine Aminotransferase 17 U/L (6-50); Albumin Level 3.6 g/dL (3.5-5.1); Alkaline Phosphatase 56 U/L (38-126); Anion Gap 10 mmol/L (4-12); Aspartate Amino Transferase 23 U/L (17-59); Bilirubin,Total 0.8 mg/dL (0.2-1.3); Blood Urea Nitrogen 10 mg/dL (9-20); Calcium 8.2 mg/dL (8.4-10.2); Carbon Dioxide 19 mmol/L (22-30); Chloride 110 mmol/L (98-107); Estimated CRCL calculation 163 ml/min; Estimated Glomerular Filt Rate > 60; Glucose 106 mg/dL (65-110); Potassium 3.2 mmol/L (3.4-5.0); Sodium 139 mmol/L (137-145)
[2024-04-30 10:12] VITALS: O2SAT 97
[2024-04-30 12:00] VITALS: PULSE 70
--- NOTE | 2024-04-30 12:10 | PM.DS ---
DS: Admitting Diagnosis Discharge Date 04/30/2024 Admitting Diagnosis Nausea, vomiting and diarrhea DS: Discharge Diagnosis Discharge Diagnosis (1) Breakthrough seizure: Code(s): G40.919 - Epilepsy, unspecified, intractable, without status epilepticus Status: Acute Assessment and Plan: - Likely related to meds non-compliance with GI symptoms. - Started on Keppra IV inpatient during GI distress. - No seizure activity inpatient. - Restarted on home antiepileptics with improvement in GI symptoms. - Follow-up outpatient with his neurologist. - Maintain outpatient seizure precautions. (2) Enteritis: Code(s): K52.9 - Noninfective gastroenteritis and colitis, unspecified Status: Acute Assessment and Plan: - Unclear etiology; Viral vs bacterial vs food poisoning vs other. - CT abd/pelvis suspicious for SMA syndrome, enteritis or mild adynamic ileus. - XR Small Bowel Followthrough showing normal bowel gas pattern. - Patient symptoms currently resolved. - Patient presented with similar symptoms last year and advised to gain 5-10 lbs with considerations for vascular surgeon consult considered if symptoms re-occurred. - Pt to follow up with PCP for re-evaluation and consideration for vascular surgeon consult. (3) Nausea and vomiting: Qualifiers: Vomiting type: bilious vomiting Qualified Code(s): R11.14 - Bilious vomiting Code(s): R11.2 - Nausea with vomiting, unspecified Status: Acute Assessment and Plan: - Unclear etiology; Gastroenteritis vs cannabis hyperemesis syndrome vs SMA syndrome vs other. - Tox screen negative except for cannabinoids. - Symptoms resolved and patient currently tolerating regular diet well. - Small bowel follow-through with normal bowel gas pattern. - GI following and no further interventions noted. - Follow-up with GI outpatient PRN. (4) Hypermagnesemia: Code(s): E83.41 - Hypermagnesemia Status: Acute Assessment and Plan: - Resolved with IVF hydration. (5) Leukocytosis: Code(s): D72.829 - Elevated white blood cell count, unspecified Status: Acute Assessment and Plan: - Possibly reactive do diarrhea and vomiting vs infection vs other. - Resolved with empiric IV abx. - Blood-cultures negative. - No obvious signs of infection noted. - Antibiotics discontinued. (6) Hypokalemia: Code(s): E87.6 - Hypokalemia Status: Acute Assessment and Plan: - Continue to replace as needed. Plan # FULL-CODE. # DVT PPx: Not required. Patient low-risk. # Diet : Regular. # IV: Peripheral # Anticipated LOS: Today. DS: Summary Hospital Course Reason for hospitalization: Breakthrough seizures. Hospital Course: Patient with a history of seizures, anxiety and depression presented to the ER with reports of breakthrough seizures. Patient reported that he had been having nausea, vomiting and diarrhea within the last 3 days and was unable to keep down his medications, including seizure medications. Patient was observed to be dehydrated from his lab work-up that showed significant electrolytes derangements, that was corrected before his discharge. He was initially placed NPO with IVF hydration, with the patient's diet transitioned gently up to a regular diet prior to his discharge that he tolerated well. Patient was initially started on IV keppra during his hospital stay due to the GI symptoms, but was able to be restarted back on his home antiepileptics prior to discharge with improvement in GI symptoms, patient observed tolerating meds well. Patient also had abd/pelvis CT done that was suggestive of a possible SMA syndrome, enteritis or mild adynamic ileus, similar findings were observed on CT abd/pelvis done a year ago when patient presented with similar symptoms. He was recommended by general surgery to gain weight and consider vascular surgery consultation if symptoms reoccurred. Pt reports he has gaine
--- NOTE | 2024-04-30 15:40 | WPDGIPROGNO ---
Progress Note: A&P Assessment and Plan (1) Abnormal digestive system diagnostic imaging: Code(s): R93.3 - Abnormal findings on diagnostic imaging of other parts of digestive tract Status: Acute Assessment and Plan: ? SMA he is eating and doing well he can follow-up in office as needed (2) Nausea and vomiting: Qualifiers: Vomiting type: bilious vomiting Qualified Code(s): R11.14 - Bilious vomiting Code(s): R11.2 - Nausea with vomiting, unspecified Status: Acute Assessment and Plan: resolved (3) Seizures: Code(s): R56.9 - Unspecified convulsions Status: Acute Assessment and Plan: back in meds no more episodes Subjective Date/time seen: 04/30/24 12:40 Interval history: doing well and tolerating diet, he is going home Review of Systems Review of Systems: All systems reviewed & are unremarkable except as noted in HPI and below Exam Const: General: comfortable and no acute distress HENMT: Face/Nose/Sinus: Normal nares present Eyes: General: appearance normal, both eyes and all related structures Neck: Neck: no JVD Resp: Auscultation: clear to auscultation bilaterally Cardio: Rate: regular rate Rhythm: regular rhythm GI: Inspection: non-distended GI Palp: Yes Soft to palpation and No Tenderness to palpation present (GI) Auscultation: normal bowel sounds Skin: General skin exam: normal color Neuro: Speech: normal speech Motor exam (neuro): 5/5 motor strength present throughout Extrem: General: normal to inspection Psych: Mental Status: mental status grossly normal Objective Data Vital Signs Vital Signs: Vital Signs - 24 hr 04/29/24 16:00 04/29/24 20:00 04/29/24 20:45 Temperature 98.4 F Pulse Rate 70 89 79 Respiratory Rate 20 Blood Pressure 110/55 L Pulse Oximetry 96 Oxygen Delivery 04/29/24 20:30 04/30/24 00:00 04/30/24 04:00 Temperature Pulse Rate 59 L 71 Respiratory Rate Blood Pressure Pulse Oximetry Oxygen Delivery Room Air 04/30/24 05:54 04/30/24 08:00 04/30/24 08:00 Temperature 98.7 F Pulse Rate 64 68 Respiratory Rate 20 Blood Pressure 132/72 Pulse Oximetry 99 Oxygen Delivery Room Air 04/30/24 10:12 04/30/24 12:00 Temperature Pulse Rate 70 Respiratory Rate Blood Pressure Pulse Oximetry 97 Oxygen Delivery Room Air Intake/Output Intake/Output: Intake & Output 04/27/24 04/28/24 04/29/24 04/30/24 23:59 23:59 23:59 23:59 Intake Total 3100 3490.0 1477.5 2200 Balance 3100 3490.0 1477.5 2200 Meds/Results Radiology Results: ITS Impressions Head CT 04/27/24 21:57 IMPRESSION: Negative examination Abdomen/Pelvis CT 04/27/24 21:59 IMPRESSION: Fluid levels in the stomach and fluid level and distention of the duodenum proximal to passage behind the superior mesenteric artery; consider SMA syndrome Fluid levels are noted in the jejunum, without abnormal dilatation; consider enteritis or mild adynamic ileus Otherwise no obstruction or intraperitoneal free air Horseshoe kidney Chest X-Ray 04/28/24 05:58 Impression: Normal chest. Upper GI and Small Bowel X-Ray 04/29/24 14:14 IMPRESSION: 1. Normal bowel gas pattern. Labs Labs: Laboratory Results - last 24 hr 04/30/24 08:34 WBC 8.0 RBC 4.38 L Hgb 12.7 L Hct 38.9 L MCV 88.8 MCH 29.0 MCHC 32.6 RDW 13.7 Plt Count 298 MPV 9.5 Immature Gran % (Auto) 0.1 Neut % (Auto) 60.3 Lymph % (Auto) 26.8 Robertson % (Auto) 10.1 H Eos % (Auto) 2.1 Baso % (Auto) 0.6 Lymph # (Auto) 2.14 Robertson # (Auto) 0.8 H Eos # (Auto) 0.2 Baso # (Auto) 0.1 Abs Immat Gran (auto) 0.01 Absolute Neuts (auto) 4.8 Absolute Nucleated RBC 0.000 Nucleated RBC % 0.0 Sodium 139 Potassium 3.2 L Chloride 110 H Carbon Dioxide 19 L Anion Gap 10 BUN 10 Creatinine 0.70 Estim Creat Clear Calc 163 Estimated GFR > 60 Glucose 106 Calcium 8.2
== END 2024-04-30 13:55 | disposition home or self-care (01) ==
LOC: ANHED 04-28 00:18 → ANH3MED 04-28 09:50
PROVIDERS: Nurse Practitioner Adult Health; Admitting Provider Internal Medicine; Emergency Provider Emergency Medicine; PCP Internal Medicine; Visit Provider Internal Medicine
DX: G40.909 Epilepsy, unspecified, not intractable, without status epilepticus (principal); K52.9 Noninfective gastroenteritis and colitis, unspecified; R93.3 Abnormal findings on diagnostic imaging of other parts of digestive tract; E87.20 Acidosis, unspecified; E87.6 Hypokalemia; E83.41 Hypermagnesemia; F41.9 Anxiety disorder, unspecified; F12.90 Cannabis use, unspecified, uncomplicated; Z20.822 Contact with and (suspected) exposure to COVID-19
CPT/HCPCS: 36415; 70450; 71045; 74177; 74250; 80053; 80307; 81001; 83605; 83690; 83735; 85025; 87040; 87637; 96361; 96365; 96366; 96367; 96372; 96374; 96375; 96376; 99285; A9270; G0378; G0379; J0780; J1650; J1953; J2405; J2470; J2543; J3480; J7030; J7040; Q9967

== ENCOUNTER 2025-08-24 18:19 | Observation (INO) | payer OTHER, SELFPAY ==
[2025-08-24] VITALS (7 sets, daily range): BP systolic 127–164; BP diastolic 65–88; PULSE 78–117; RESP 13–24; TEMP 37.8–38.4; O2SAT 96–100
--- NOTE | ~2025-08-24 | MR_ITS ---
EXAMINATION: MR brain/brain stem wo con DATE: 08/27/2025 16:32 INDICATION: Seizures TECHNIQUE: Magnetic resonance imaging (MRI) of the brain and brainstem was performed without intravenous contrast. Sequences included sagittal and axial diffusion-weighted FS SE. Apparent diffusion coefficient (ADC) maps were created. Study was terminated prior to obtaining the remainder of the planned sequences due to patient began to experience preseizure like symptoms. COMPARISON: None. FINDINGS: There are no areas of restricted diffusion to suggest acute infarction. No evident abnormal intracranial mass lesion. The ventricles are symmetric and normal in size. There are no abnormal extra-axial fluid collections. IMPRESSION: 1. Limited MRI terminated after only the sagittal T1-weighted and axial diffusion-weighted sequences due to development of preseizure like symptoms. 2. Obtained sequences are normal in appearance with no acute infarct. Reviewed, dictated and finalized at location A. HOLDER IMPRESSION: 1. Limited MRI terminated after only the sagittal T1-weighted and axial diffusi on-weighted sequences due to development of preseizure like symptoms. 2. Obtained sequences are normal in appearance with no acute infarct.
--- NOTE | ~2025-08-24 | CT_ITS ---
CT HEAD NON-CONTRAST Clinical History: AMS Comparison: 04/27/2024 Technique: Unenhanced axial images skull base to vertex Coronal, sagittal reformats CT images acquired with automatic exposure control for dose reduction DLP: 2497 mGy-cm Findings: Sulci, ventricles: Unremarkable. No intracerebral hemorrhage. No evidence acute territorial infarct. No mass effect, midline shift. Bony calvarium intact. Visualized paranasal sinuses: Clear. Mastoid air cells: Clear. IMPRESSION: 1. No acute intracranial findings. Reviewed, dictated and finalized at location R. ER GENETIC COUNSELOR
--- NOTE | ~2025-08-24 | CT_ITS ---
CT HEAD NON-CONTRAST Clinical History: numbness to left arm radiating up arm Comparison: 08/25/2025 Technique: Unenhanced axial images skull base to vertex Coronal, sagittal reformats CT images acquired with automatic exposure control for dose reduction DLP: 681 mGy-cm Findings: Sulci, ventricles: Unremarkable. No intracerebral hemorrhage. No evidence acute territorial infarct. No mass effect, midline shift. Bony calvarium intact. Visualized paranasal sinuses: Clear. Mastoid air cells: Clear. IMPRESSION: 1. No acute intracranial findings. Reviewed, dictated and finalized at location R. E DELIVERY MANAGER
--- NOTE | ~2025-08-24 | CT_ITS ---
EXAMINATION: CT chest abdomen pelvis wo con, 08/24/2025 2:35 PRACTICAL NURSE CLINICAL COORDINATOR HISTORY: fever COMPARISON: Comparison 04/27/2024. TECHNIQUE: CT scan of the chest, abdomen and pelvis was performed without contrast One or more of the following dose reduction techniques were used: automated exposure control, adjustment of the mA and/or kV according to patient size, use of iterative reconstruction technique. Unless otherwise stated, incidental findings do not require dedicated follow up imaging FINDINGS: CT chest: No significant coronary calcification is present ([id number]) LUNGS: No tracheomalacia. Minimal emphysematous and pulmonary fibrotic changes. HEART AND PERICARDIUM: Minimal cardiomegaly. AORTA: Normal caliber aorta. MEDIASTINUM: Unremarkable. THYROID: The thyroid is unremarkable. CT abdomen: LIVER: Unremarkable, liver contours intact, no lesions. SPLEEN: Unremarkable, no splenomegaly. KIDNEYS: Incidental horseshoe kidney variant noted. Right Kidney: Unremarkable. No calculi. No hydronephrosis. Left Kidney: Unremarkable. No calculi. No hydronephrosis ADRENAL GLANDS: Unremarkable. PANCREAS: GALLBLADDER/BILIARY: Unremarkable. No biliary dilatation. STOMACH AND ESOPHAGUS: Visualized stomach and esophagus within normal limits. BOWEL/MESENTERY: Moderate fecal content, no colitis or diverticulitis. Appendix normal. Mesentery normal. Small bowel normal. RETROPERITONEUM: Unremarkable AORTA/VASCULATURE: Normal caliber aorta. FREE FLUID OR FREE AIR: No free fluid.. CT pelvis: SOLID ORGANS/REPRODUCTIVE: Unremarkable. BLADDER: The bladder is distended. LYMPHADENOPATHY: No lymphadenopathy. OSSEOUS STRUCTURES: Poststernotomy changes. OVERLYING SOFT TISSUES: Unremarkable. IMPRESSION: 1. Motion artifact limits evaluation. No etiology to explain the patient's symptoms. Reviewed, dictated and finalized at location P. TICAL NURSE CLINICAL COORDINATOR IMPRESSION: 1. Motion artifact limits evaluation. No etiology to explain the patient's symp toms.
--- NOTE | ~2025-08-24 | XR_ITS ---
Examination: XR chest 1V portable Clinical History: fever Comparison: 04/27/2024 Technique: Portable AP Findings: Heart size normal. Lungs clear. No acute bony abnormality. IMPRESSION: 1. No acute cardiopulmonary findings given portable technique. Reviewed, dictated and finalized at location R. AN DEVELOPER
[2025-08-24] MEDS: SODIUM CHLORIDE 0.9% IV 1,000 ML 999 ML IV CONT (19:05)
--- NOTE | 2025-08-24 19:10 | ED.SEIZURE ---
HPI - Seizure General Chief Complaint: Seizure <Haydee Ramirez PA-C - Last Filed: 08/25/25 17:24> Stated Complaint: seizure <Haydee Ramirez PA-C - Last Filed: 08/25/25 17:24> Time Seen by Provider: 08/24/25 18:22 <Haydee Ramirez PA-C - Last Filed: 08/25/25 17:24> Source: EMS <Haydee Ramirez PA-C - Last Filed: 08/25/25 17:24> Mode of arrival: EMS <Haydee Ramirez PA-C - Last Filed: 08/25/25 17:24> Limitations: altered mental status <Haydee Ramirez PA-C - Last Filed: 08/25/25 17:24> History of Present Illness HPI Narrative: This is a 29 year old male that presents to the ER for altered mental status. Patient reportedly has had 2 seizures today. Reported history of seizure disorder. He gets very combative after seizures. <Haydee Ramirez PA-C - Last Filed: 08/25/25 17:24> Related Data Home Medications: Home Medications ?Medication ?Instructions ?Recorded ?Confirmed ?Last Taken ?Type hydroxyzine HCl 25 mg tablet 25 mg PO TID PRN Anxiety 04/14/24 08/25/25 Unknown History zonisamide 100 mg capsule 600 mg PO HS 04/14/24 08/25/25 Unknown History carvedilol 25 mg tablet 25 mg PO BID 08/25/25 08/25/25 Unknown History clonidine HCl 0.2 mg tablet 0.2 mg PO TID PRN hypertensive 08/25/25 08/25/25 Unknown History emergency gabapentin 600 mg tablet 600 mg PO TID 08/25/25 08/25/25 Unknown History lacosamide 50 mg tablet 50 mg PO BID 08/25/25 08/25/25 Unknown History magnesium oxide 400 mg (241.3 mg 800 mg PO BID 08/25/25 08/25/25 Unknown History magnesium) tablet omeprazole 40 mg capsule,delayed 40 mg PO DAILY 08/25/25 08/25/25 Unknown History release quetiapine 100 mg tablet 100 mg PO DAILY 08/25/25 08/25/25 Unknown History sertraline 25 mg tablet 25 mg PO DAILY 08/25/25 08/25/25 Unknown History spironolactone 25 mg tablet 25 mg PO DAILY 08/25/25 08/25/25 Unknown History <Haydee Ramirez PA-C - Last Filed: 08/25/25 17:24> Allergies/Adverse Reactions: Allergies Allergy/AdvReac Type Severity Reaction Status Date / Time ceftriaxone Allergy Mild Verified 08/25/25 10:51 <Haydee Ramirez PA-C - Last Filed: 08/25/25 17:24> Review of Systems Review of Systems: All systems reviewed & are unremarkable except as noted in HPI and below <SLOAN West Last Filed: 08/25/25 17:24> [facility] Past Medical History Medical History: Medical History Anxiety Seizures <SLOAN West Last Filed: 08/25/25 17:24> Surgical History Surgical History: Surgical History H/O elbow surgery Right <Haydee Ramirez PA-C - Last Filed: 08/25/25 17:24> Family History Family History: Family History Father Hypertension Mother Fatty liver Thyroid disease <SLOAN West Last Filed: 08/25/25 17:24> Social History Social History: Social History Social History: Single. 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 HEAD: Normocephalic, atraumatic. EYES: PERRLA and EOMI. ENT: Nares clear, no rhinorrhea or epistaxis. Mucous membranes moist. Oropharynx without tonsillar hypertrophy exudate or other lesions CHEST: Clear to auscultation. No respiratory distress. No wheezes rales or rhonchi HEART: Regular rate and rhythm. No murmur heard. Normal peripheral pulses. EXTREMITIES: Normal range of motion. No edema. SKIN: Warm, dry, no rash. NEURO: No focal deficits. Alert and oriented x1. PSYCH: Normal mood and affect <Haydee Ramirez PA-C - Last Filed: 08/25/25 17:24> Course Course Emergency Course: Patient's father requesting transfer to [facility] as that is where his schedule supervisor and neurologist are. He had bicuspid aortic valve that was repaired 06/09/25. Reports he has been following up with cardiology and has had no post-op complications <Haydee Ramirez PA-C - Last Filed: 08/25/25 17:24> Consultations Hospitalist: Time of Consult: 02:24 <Haydee Ramirez PA-C - Last Filed: 08/25/25 17:24> I have discussed the care of this patient with the following provider: Hospitalist at [facility], declines to accept transfer at this time <Haydee Ramirez PA-C - Last Filed: 08/25/25 17:24> Vital Signs Vital signs: Vital Signs Temperature 101.2 F H 08/24/25 18:29 Pulse Rate 117 H 08/24/25 18:29 Respiratory Rate 20 08/24/25 18:29 Blood Pressure 164/65 H 08/24/25 18:29 Pulse Oximetry 100 08/24/25 18:29 Oxygen Delivery Room Air 08/24/25 18:29 Temperature 100.6 F H 08/25/25 12:00 Pulse Rate 118 H 08/25/25 14:00 Respiratory Rate 20 08/25/25 12:00 Blood Pressure 97/68 L 08/25/25 12:00 Pulse Oximetry 99 08/25/25 12:00 Oxygen Delivery Room Air 08/25/25 12:00 <Haydee Ramirez PA-C - Last Filed: 08/25/25 17:24> Vital Signs Temperature 101.2 F H 08/24/25 18:29 Pulse Rate 117 H 08/24/25 18:29 Respiratory Rate 20 08/24/25 18:29 Blood Pressure 164/65 H 08/24/25 18:29 Pulse Oximetry 100 08/24/25 18:29 Oxygen Delivery Room Air 08/24/25 18:29 Temperature 100.6 F H 08/25/25 12:00 Pulse Rate 118 H 08/25/25 14:00 Respiratory Rate 20 08/25/25 12:00 Blood Pressure 97/68 L 08/25/25 12:00 Pulse Oximetry 99 08/25/25 12:00 Oxygen Delivery Room Air 08/25/25 12:00 <Nghia Nunn DO - Last Filed: 08/25/25 07:13> MDM MDM Narrative Medical decision making narrative: Patient presents to the emergency department for agitation after having a seizure today. He does have known history of seizure disorder. Patient confused, but without focal deficits or meningeal signs. Patient agitated, finding with staff upon arrival. He did require restraints briefly. He did respond to medications and was no longer aggressive, but still not cooperative. Tachycardic and febrile upon arrival, given antipyretic and hydrated see with leukocytosis to 19. Metabolic panel with evidence of acute kidney injury. Drug screen positive for cannabinoids, benzodiazepines. Influenza, RSV and COVID screens are negative. Without evidence of infection. CT brain without acute findings. CT chest/abdomen/pelvis without acute findings. Patient's father is requesting transfer to [place] as that is where his schedule supervisor and neurologist are. The hospitalist declined to accept the transfer as they feel he does not need a higher level care at this time. Spoke with hospitalist about patient and workup who accepts admission, will consult neurology <Haydee Ramirez PA-C - Last Filed: 08/25/25 17:24> Differential Diagnosis Differential Diagnosis: Breakthrough seizure, metabolic derangement, electrolyte derangement, URI, substance abuse, pneumonia, UTI, <Nghia Nunn DO - Last Filed: 08/25/25 07:13> Lab Data MDM Lab Attestation statement: I personally reviewed the patient's lab results. <Haydee Ramirez PA-C - Last Filed: 08/25/25 17:24> Result diagrams: 08/25/25 06:38 08/25/25 06:38 <Haydee Ramirez PA-C - Last Filed: 08/25/25 17:24> Labs: Lab Results 08/24/25 08/24/25 08/24/25 Range/Units 19:00 19:03 19:03 WBC (4.5-10.0) K/mm3 RBC (4.6-6.20) M/mm3 Hgb (14.0-18.0) g/dL Hct (42.0-52.0) % MCV (80-100) fl MCH (26-34) pg MCHC (32-36) g/dl RDW (11.5-14.5) % Plt Count (150-375) k/mm3 MPV (7.4-10.4) fl Immature Gran % (Auto) Neut % (Auto) Lymph % (Auto) [place] % (Auto) Eos % (Auto) Baso % (Auto) Lymph # (Auto) [place] # (Auto) Eos # (Auto) Baso # (Auto) Abs Immat Gran (auto) Absolute Neuts (auto) Absolute Nucleated RBC Total Counted Neutrophils % (Manual) (46-73) % Band Neutrophils % (0-6) % Lymphocytes % (Manual) (18-44) % Monocytes % (Manual) (3-9) % Nucleated RBC % Abs Neuts (Manual) (1.3-6.7) K/mm3 Abs Lymphs (Manual) (1.1-4.5) K/mm3 Abs Monocytes (Manual) (0.1-0.90) K/mm3 Platelet Estimate (Adequate) Hypochromasia Anisocytosis Microcytosis (NORMAL) Schistocytes PT (11.1-14.7) Seconds INR APTT (22.3-36.8) Seconds Sodium 136 L (137-145) mmol/L Potassium 4.2 (3.4-5.0) mmol/L Chloride 105 (98-107) mmol/L Carbon Dioxide 14 L (22-30) mmol/L Anion Gap 17 H (4-12) mmol/L BUN 15 D (9-20) mg/dL Creatinine 1.67 H (0.7-1.3) mg/dL Estim Creat Clear Calc 65 ml/min Estimated GFR 49 L (59 - ) Glucose 97 (65-110) mg/dL Lactic Acid 8.5 H* (0.7-2.0) mmol/L Calcium 9.4 (8.4-10.2) mg/dL Total Bilirubin 0.5 (0.2-1.3) mg/dL AST 53 (17-59) U/L ALT 32 (6-50) U/L Alkaline Phosphatase 103 (38-126) U/L Total Creatine Kinase 729 H Cancelled (55-170) U/L Total Protein 8.2 (6.3-8.2) g/dL Albumin 5.1 (3.5-5.1) g/dL Procalcitonin 0.1 ng/mL Urine Color (Yellow) Urine Appearance (Clear) Urine pH (5.0-9.0) Ur Specific [place] (1.001-1.035) Urine Protein (Negative) mg/dL Urine Glucose (UA) (Negative) mg/dL Urine Ketones (Negative) mg/dL Ur Blood (Man) (Negative) Urine Nitrate (Negative) Urine Bilirubin (Negative) Urine Urobilinogen (<2.0) mg/dL Leukocyte Esterase Rfl (Negative) RAFY/UL Urine RBC (0-2) /hpf Urine WBC (0-3) /hpf Ur Squamous Epith Cells (Few) /hpf Uric Acid Crystals (None) /hpf Urine Bacteria /hpf Urine Casts Salicylates (2-20) mg/dL Urine Opiates Screen (Negative) Urine Methadone Screen (Negative) Acetaminophen (10-30) ug/mL Ur Barbiturates Screen (Negative) Ur Phencyclidine Scrn (Negative) Ur Amphetamine Screen (Negative) U Benzodiazepines Scrn (Negative) Urine Cocaine Screen (Negative) U Cannabinoids Screen (Negative) Ethyl Alcohol < 10 (<10) mg/dL Influenza A (RT-PCR) (Negative) Influenza B (RT-PCR) (Negative) RSV (RT-PCR) (Negative) SARS-CoV-2 RNA (RT-PCR) (Negative) 1208/24/25 08/24/25 Range/Units 19:21 19:49 21:53 WBC 19.9 H (4.5-10.0) K/mm3 RBC 4.38 L (4.6-6.20) M/mm3 Hgb 10.4 L (14.0-18.0) g/dL Hct 33.8 L (42.0-52.0) % MCV 77.2 L (80-100) fl MCH 23.7 L (26-34) pg MCHC 30.8 L (32-36) g/dl RDW 15.9 H (11.5-14.5) % Plt Count 436 H (150-375) k/mm3 MPV 9.1 (7.4-10.4) fl Immature Gran % (Auto) Not Reportable Neut % (Auto) Not Reportable Lymph % (Auto) Not Reportable [place] % (Auto) Not Reportable Eos % (Auto) Not Reportable Baso % (Auto) Not Reportable Lymph # (Auto) Not Reportable [place] # (Auto) Not Reportable Eos # (Auto) Not Reportable Baso # (Auto) Not Reportable Abs Immat Gran (auto) Not Reportable Absolute Neuts (auto) Not Reportable Absolute Nucleated RBC Not Reportable Total Counted 100 Neutrophils % (Manual) 89 H (46-73) % Band Neutrophils % 1 (0-6) % Lymphocytes % (Manual) 2.0 L (18-44) % Monocytes % (Manual) 8 (3-9) % Nucleated RBC % Not Reportable Abs Neuts (Manual) 17.91 H (1.3-6.7) K/mm3 Abs Lymphs (Manual) 0.39 L (1.1-4.5) K/mm3 Abs Monocytes (Manual) 1.59 H (0.1-0.90) K/mm3 Platelet Estimate Increased (Adequate) Hypochromasia 1+ Anisocytosis 2+ Microcytosis 1+ (NORMAL) Schistocytes None seen PT 14.7 (11.1-14.7) Seconds INR 1.1 APTT 21.1 L (22.3-36.8) Seconds Sodium (137-145) mmol/L Potassium (3.4-5.0) mmol/L Chloride (98-107) mmol/L Carbon Dioxide (22-30) mmol/L Anion Gap (4-12) mmol/L BUN (9-20) mg/dL Creatinine (0.7-1.3) mg/dL Estim Creat Clear Calc ml/min Estimated GFR (59 - ) Glucose (65-110) mg/dL Lactic Acid (0.7-2.0) mmol/L Calcium (8.4-10.2) mg/dL Total Bilirubin (0.2-1.3) mg/dL AST (17-59) U/L ALT (6-50) U/L Alkaline Phosphatase (38-126) U/L Total Creatine Kinase (55-170) U/L Total Protein (6.3-8.2) g/dL Albumin (3.5-5.1) g/dL Procalcitonin ng/mL Urine Color (Yellow) Urine Appearance (Clear) Urine pH (5.0-9.0) Ur Specific [place] (1.001-1.035) Urine Protein (Negative) mg/dL Urine Glucose (UA) (Negative) mg/dL Urine Ketones (Negative) mg/dL Ur Blood (Man) (Negative) Urine Nitrate (Negative) Urine Bilirubin (Negative) Urine Urobilinogen (<2.0) mg/dL Leukocyte Esterase Rfl (Negative) RAFY/UL Urine RBC (0-2) /hpf Urine WBC (0-3) /hpf Ur Squamous Epith Cells (Few) /hpf Uric Acid Crystals (None) /hpf Urine Bacteria /hpf Urine Casts Salicylates < 1.0 L (2-20) mg/dL Urine Opiates Screen Negative (Negative) Urine Methadone Screen Negative (Negative) Acetaminophen < 10 L (10-30) ug/mL Ur Barbiturates Screen Negative (Negative) Ur Phencyclidine Scrn Negative (Negative) Ur Amphetamine Screen Negative (Negative) U Benzodiazepines Scrn Positive A (Negative) Urine Cocaine Screen Negative (Negative) U Cannabinoids Screen Positive A (Negative) Ethyl Alcohol (<10) mg/dL Influenza A (RT-PCR) Negative (Negative) Influenza B (RT-PCR) Negative (Negative) RSV (RT-PCR) Negative (Negative) SARS-CoV-2 RNA (RT-PCR) Negative (Negative) 08/24/25 Range/Units 21:54 WBC (4.5-10.0) K/mm3 RBC (4.6-6.20) M/mm3 Hgb (14.0-18.0) g/dL Hct (42.0-52.0) % MCV (80-100) fl MCH (26-34) pg MCHC (32-36) g/dl RDW (11.5-14.5) % Plt Count (150-375) k/mm3 MPV (7.4-10.4) fl Immature Gran % (Auto) Neut % (Auto) Lymph % (Auto) [place] % (Auto) Eos % (Auto) Baso % (Auto) Lymph # (Auto) [place] # (Auto) Eos # (Auto) Baso # (Auto) Abs Immat Gran (auto) Absolute Neuts (auto) Absolute Nucleated RBC Total Counted Neutrophils % (Manual) (46-73) % Band Neutrophils % (0-6) % Lymphocytes % (Manual) (18-44) % Monocytes % (Manual) (3-9) % Nucleated RBC % Abs Neuts (Manual) (1.3-6.7) K/mm3 Abs Lymphs (Manual) (1.1-4.5) K/mm3 Abs Monocytes (Manual) (0.1-0.90) K/mm3 Platelet Estimate (Adequate) Hypochromasia Anisocytosis Microcytosis (NORMAL) Schistocytes PT (11.1-14.7) Seconds INR APTT (22.3-36.8) Seconds Sodium (137-145) mmol/L Potassium (3.4-5.0) mmol/L Chloride (98-107) mmol/L Carbon Dioxide (22-30) mmol/L Anion Gap (4-12) mmol/L BUN (9-20) mg/dL Creatinine (0.7-1.3) mg/dL Estim Creat Clear Calc ml/min Estimated GFR (59 - ) Glucose (65-110) mg/dL Lactic Acid (0.7-2.0) mmol/L Calcium (8.4-10.2) mg/dL Total Bilirubin (0.2-1.3) mg/dL AST (17-59) U/L ALT (6-50) U/L Alkaline Phosphatase (38-126) U/L Total Creatine Kinase (55-170) U/L Total Protein (6.3-8.2) g/dL Albumin (3.5-5.1) g/dL Procalcitonin ng/mL Urine Color Yellow (Yellow) Urine Appearance Turbid H (Clear) Urine pH 5.5 (5.0-9.0) Ur Specific [place] 1.010 (1.001-1.035) Urine Protein Negative (Negative) mg/dL Urine Glucose (UA) Negative (Negative) mg/dL Urine Ketones Negative (Negative) mg/dL Ur Blood (Man) Trace (Negative) Urine Nitrate Negative (Negative) Urine Bilirubin Negative (Negative) Urine Urobilinogen 0.2 (<2.0) mg/dL Leukocyte Esterase Rfl Negative (Negative) RAFY/UL Urine RBC 0-2 (0-2) /hpf Urine WBC 0-5 (0-3) /hpf Ur Squamous Epith Cells None seen (Few) /hpf Uric Acid Crystals Present H (None) /hpf Urine Bacteria None seen /hpf Urine Casts 3-5 Salicylates (2-20) mg/dL Urine Opiates Screen (Negative) Urine Methadone Screen (Negative) Acetaminophen (10-30) ug/mL Ur Barbiturates Screen (Negative) Ur Phencyclidine Scrn (Negative) Ur Amphetamine Screen (Negative) U Benzodiazepines Scrn (Negative) Urine Cocaine Screen (Negative) U Cannabinoids Screen (Negative) Ethyl Alcohol (<10) mg/dL Influenza A (RT-PCR) (Negative) Influenza B (RT-PCR) (Negative) RSV (RT-PCR) (Negative) SARS-CoV-2 RNA (RT-PCR) (Negative) <Haydee Ramirez PA-C - Last Filed: 08/25/25 17:24> Lab Results 08/24/25 08/24/25 08/24/25 Range/Units 19:00 19:03 19:03 WBC (4.5-10.0) K/mm3 RBC (4.6-6.20) M/mm3 Hgb (14.0-18.0) g/dL Hct (42.0-52.0) % MCV (80-100) fl MCH (26-34) pg MCHC (32-36) g/dl RDW (11.5-14.5) % Plt Count (150-375) k/mm3 MPV (7.4-10.4) fl Immature Gran % (Auto) Neut % (Auto) Lymph % (Auto) [place] % (Auto) Eos % (Auto) Baso % (Auto) Lymph # (Auto) [place] # (Auto) Eos # (Auto) Baso # (Auto) Abs Immat Gran (auto) Absolute Neuts (auto) Absolute Nucleated RBC Total Counted Neutrophils % (Manual) (46-73) % Band Neutrophils % (0-6) % Lymphocytes % (Manual) (18-44) % Monocytes % (Manual) (3-9) % Nucleated RBC % Abs Neuts (Manual) (1.3-6.7) K/mm3 Abs Lymphs (Manual) (1.1-4.5) K/mm3 Abs Monocytes (Manual) (0.1-0.90) K/mm3 Platelet Estimate (Adequate) Hypochromasia Anisocytosis Microcytosis (NORMAL) Schistocytes PT (11.1-14.7) Seconds INR APTT (22.3-36.8) Seconds Sodium 136 L (137-145) mmol/L Potassium 4.2 (3.4-5.0) mmol/L Chloride 105 (98-107) mmol/L Carbon Dioxide 14 L (22-30) mmol/L Anion Gap 17 H (4-12) mmol/L BUN 15 D (9-20) mg/dL Creatinine 1.67 H (0.7-1.3) mg/dL Estim Creat Clear Calc 65 ml/min Estimated GFR 49 L (59 - ) Glucose 97 (65-110) mg/dL Lactic Acid 8.5 H* (0.7-2.0) mmol/L Calcium 9.4 (8.4-10.2) mg/dL Total Bilirubin 0.5 (0.2-1.3) mg/dL AST 53 (17-59) U/L ALT 32 (6-50) U/L Alkaline Phosphatase 103 (38-126) U/L Total Creatine Kinase 729 H Cancelled (55-170) U/L Total Protein 8.2 (6.3-8.2) g/dL Albumin 5.1 (3.5-5.1) g/dL Procalcitonin 0.1 ng/mL Urine Color (Yellow) Urine Appearance (Clear) Urine pH (5.0-9.0) Ur Specific [place] (1.001-1.035) Urine Protein (Negative) mg/dL Urine Glucose (UA) (Negative) mg/dL Urine Ketones (Negative) mg/dL Ur Blood (Man) (Negative) Urine Nitrate (Negative) Urine Bilirubin (Negative) Urine Urobilinogen (<2.0) mg/dL Leukocyte Esterase Rfl (Negative) RAFY/UL Urine RBC (0-2) /hpf Urine WBC (0-3) /hpf Ur Squamous Epith Cells (Few) /hpf Uric Acid Crystals (None) /hpf Urine Bacteria /hpf Urine Casts Salicylates (2-20) mg/dL Urine Opiates Screen (Negative) Urine Methadone Screen (Negative) Acetaminophen (10-30) ug/mL Ur Barbiturates Screen (Negative) Ur Phencyclidine Scrn (Negative) Ur Amphetamine Screen (Negative) U Benzodiazepines Scrn (Negative) Urine Cocaine Screen (Negative) U Cannabinoids Screen (Negative) Ethyl Alcohol < 10 (<10) mg/dL Influenza A (RT-PCR) (Negative) Influenza B (RT-PCR) (Negative) RSV (RT-PCR) (Negative) SARS-CoV-2 RNA (RT-PCR) (Negative) 08/24/25 08/24/25 08/24/25 Range/Units 19:21 19:49 21:53 WBC 19.9 H (4.5-10.0) K/mm3 RBC 4.38 L (4.6-6.20) M/mm3 Hgb 10.4 L (14.0-18.0) g/dL Hct 33.8 L (42.0-52.0) % MCV 77.2 L (80-100) fl MCH 23.7 L (26-34) pg MCHC 30.8 L (32-36) g/dl RDW 15.9 H (11.5-14.5) % Plt Count 436 H (150-375) k/mm3 MPV 9.1 (7.4-10.4) fl Immature Gran % (Auto) Not Reportable Neut % (Auto) Not Reportable Lymph % (Auto) Not Reportable [place] % (Auto) Not Reportable Eos % (Auto) Not Reportable Baso % (Auto) Not Reportable Lymph # (Auto) Not Reportable [place] # (Auto) Not Reportable Eos # (Auto) Not Reportable Baso # (Auto) Not Reportable Abs Immat Gran (auto) Not Reportable Absolute Neuts (auto) Not Reportable Absolute Nucleated RBC Not Reportable Total Counted 100 Neutrophils % (Manual) 89 H (46-73) % Band Neutrophils % 1 (0-6) % Lymphocytes % (Manual) 2.0 L (18-44) % Monocytes % (Manual) 8 (3-9) % Nucleated RBC % Not Reportable Abs Neuts (Manual) 17.91 H (1.3-6.7) K/mm3 Abs Lymphs (Manual) 0.39 L (1.1-4.5) K/mm3 Abs Monocytes (Manual) 1.59 H (0.1-0.90) K/mm3 Platelet Estimate Increased (Adequate) Hypochromasia 1+ Anisocytosis 2+ Microcytosis 1+ (NORMAL) Schistocytes None seen PT 14.7 (11.1-14.7) Seconds INR 1.1 APTT 21.1 L (22.3-36.8) Seconds Sodium (137-145) mmol/L Potassium (3.4-5.0) mmol/L Chloride (98-107) mmol/L Carbon Dioxide (22-30) mmol/L Anion Gap (4-12) mmol/L BUN (9-20) mg/dL Creatinine (0.7-1.3) mg/dL Estim Creat Clear Calc ml/min Estimated GFR (59 - ) Glucose (65-110) mg/dL Lactic Acid (0.7-2.0) mmol/L Calcium (8.4-10.2) mg/dL Total Bilirubin (0.2-1.3) mg/dL AST (17-59) U/L ALT (6-50) U/L Alkaline Phosphatase (38-126) U/L Total Creatine Kinase (55-170) U/L Total Protein (6.3-8.2) g/dL Albumin (3.5-5.1) g/dL Procalcitonin ng/mL Urine Color (Yellow) Urine Appearance (Clear) Urine pH (5.0-9.0) Ur Specific [place] (1.001-1.035) Urine Protein (Negative) mg/dL Urine Glucose (UA) (Negative) mg/dL Urine Ketones (Negative) mg/dL Ur Blood (Man) (Negative) Urine Nitrate (Negative) Urine Bilirubin (Negative) Urine Urobilinogen (<2.0) mg/dL Leukocyte Esterase Rfl (Negative) RAFY/UL Urine RBC (0-2) /hpf Urine WBC (0-3) /hpf Ur Squamous Epith Cells (Few) /hpf Uric Acid Crystals (None) /hpf Urine Bacteria /hpf Urine Casts Salicylates < 1.0 L (2-20) mg/dL Urine Opiates Screen Negative (Negative) Urine Methadone Screen Negative (Negative) Acetaminophen < 10 L (10-30) ug/mL Ur Barbiturates Screen Negative (Negative) Ur Phencyclidine Scrn Negative (Negative) Ur Amphetamine Screen Negative (Negative) U Benzodiazepines Scrn Positive A (Negative) Urine Cocaine Screen Negative (Negative) U Cannabinoids Screen Positive A (Negative) Ethyl Alcohol (<10) mg/dL Influenza A (RT-PCR) Negative (Negative) Influenza B (RT-PCR) Negative (Negative) RSV (RT-PCR) Negative (Negative) SARS-CoV-2 RNA (RT-PCR) Negative (Negative) 08/24/25 Range/Units 21:54 WBC (4.5-10.0) K/mm3 RBC (4.6-6.20) M/mm3 Hgb (14.0-18.0) g/dL Hct (42.0-52.0) % MCV (80-100) fl MCH (26-34) pg MCHC (32-36) g/dl RDW (11.5-14.5) % Plt Count (150-375) k/mm3 MPV (7.4-10.4) fl Immature Gran % (Auto) Neut % (Auto) Lymph % (Auto) [place] % (Auto) Eos % (Auto) Baso % (Auto) Lymph # (Auto) [place] # (Auto) Eos # (Auto) Baso # (Auto) Abs Immat Gran (auto) Absolute Neuts (auto) Absolute Nucleated RBC Total Counted Neutrophils % (Manual) (46-73) % Band Neutrophils % (0-6) % Lymphocytes % (Manual) (18-44) % Monocytes % (Manual) (3-9) % Nucleated RBC % Abs Neuts (Manual) (1.3-6.7) K/mm3 Abs Lymphs (Manual) (1.1-4.5) K/mm3 Abs Monocytes (Manual) (0.1-0.90) K/mm3 Platelet Estimate (Adequate) Hypochromasia Anisocytosis Microcytosis (NORMAL) Schistocytes PT (11.1-14.7) Seconds INR APTT (22.3-36.8) Seconds Sodium (137-145) mmol/L Potassium (3.4-5.0) mmol/L Chloride (98-107) mmol/L Carbon Dioxide (22-30) mmol/L Anion Gap (4-12) mmol/L BUN (9-20) mg/dL Creatinine (0.7-1.3) mg/dL Estim Creat Clear Calc ml/min Estimated GFR (59 - ) Glucose (65-110) mg/dL Lactic Acid (0.7-2.0) mmol/L Calcium (8.4-10.2) mg/dL Total Bilirubin (0.2-1.3) mg/dL AST (17-59) U/L ALT (6-50) U/L Alkaline Phosphatase (38-126) U/L Total Creatine Kinase (55-170) U/L Total Protein (6.3-8.2) g/dL Albumin (3.5-5.1) g/dL Procalcitonin ng/mL Urine Color Yellow (Yellow) Urine Appearance Turbid H (Clear) Urine pH 5.5 (5.0-9.0) Ur Specific [place] 1.010 (1.001-1.035) Urine Protein Negative (Negative) mg/dL Urine Glucose (UA) Negative (Negative) mg/dL Urine Ketones Negative (Negative) mg/dL Ur Blood (Man) Trace (Negative) Urine Nitrate Negative (Negative) Urine Bilirubin Negative (Negative) Urine Urobilinogen 0.2 (<2.0) mg/dL Leukocyte Esterase Rfl Negative (Negative) RAFY/UL Urine RBC 0-2 (0-2) /hpf Urine WBC 0-5 (0-3) /hpf Ur Squamous Epith Cells None seen (Few) /hpf Uric Acid Crystals Present H (None) /hpf Urine Bacteria None seen /hpf Urine Casts 3-5 Salicylates (2-20) mg/dL Urine Opiates Screen (Negative) Urine Methadone Screen (Negative) Acetaminophen (10-30) ug/mL Ur Barbiturates Screen (Negative) Ur Phencyclidine Scrn (Negative) Ur Amphetamine Screen (Negative) U Benzodiazepines Scrn (Negative) Urine Cocaine Screen (Negative) U Cannabinoids Screen (Negative) Ethyl Alcohol (<10) mg/dL Influenza A (RT-PCR) (Negative) Influenza B (RT-PCR) (Negative) RSV (RT-PCR) (Negative) SARS-CoV-2 RNA (RT-PCR) (Negative) <DO Yeyo Calderon Last Filed: 08/25/25 07:13> Imaging Data Radiologist's impression: ITS Impressions Chest X-Ray 08/25/25 06:41 IMPRESSION: 1. No acute cardiopulmonary findings given portable technique. Head CT 08/25/25 06:48 IMPRESSION: 1. No acute intracranial findings. Chest/Abdomen/Pelvis CT 08/25/25 08:26 IMPRESSION: 1. Motion artifact limits evaluation. No etiology to explain the patient's symptoms. CT brain: No intracranial hemorrhage. No significant mass effect or midline shift. No cortical infarct or significant alteration from previous exam CT chest/abdomen/pelvis: Atelectasis in the lower lobes. No pleural effusion or pneumothorax. No pericardial effusion. No acute osseous abnormality. No bowel obstruction. Mild stool burden. No free intraperitoneal fluid or pneumoperitoneum. The liver, gallbladder, pancreas, spleen, adrenal glands and kidneys demonstrate no abnormality. Horseshoe configuration of the kidneys. Bladder is unremarkable. No acute osseous or significant soft tissue abnormality <SLOAN [place] Last Filed: 08/25/25 17:24> ITS Impressions Chest X-Ray 08/25/25 06:41 IMPRESSION: 1. No acute cardiopulmonary findings given portable technique. Head CT 08/25/25 06:48 IMPRESSION: 1. No acute intracranial findings. Chest/Abdomen/Pelvis CT 08/25/25 08:26 IMPRESSION: 1. Motion artifact limits evaluation. No etiology to explain the patient's symptoms. <DO Yeyo Calderon Last Filed: 08/25/25 07:13> Critical Care Time Critical Care Time Critical Care Time: Yes <SLOAN West Last Filed: 08/25/25 17:24> Time Type: Intermittent <SLOAN West Last Filed: 08/25/25 17:24> Initial evaluation, discuss w/ involved parties, attempting to gather old records: 15 minutes <SLOAN West Last Filed: 08/25/25 17:24> Documenting medical record: 15 minutes <Haydee Ramirez PA-C - Last Filed: 08/25/25 17:24> Review of results (EKG's, labs, imaging): 10 minutes <Haydee Ramirez PA-C - Last Filed: 08/25/25 17:24> Serial repeat bedside evaluation: 30 minutes <Haydee Ramirez PA-C - Last Filed: 08/25/25 17:24> Discussing case with multiple memebers of the care team and consultants: 10 minutes <Haydee Ramirez PA-C - Last Filed: 08/25/25 17:24> Total Critical Care Time: 80 <Haydee Ramirez PA-C - Last Filed: 08/25/25 17:24> Restraint Face to Face Eval ED Reason for Restraint Aggressive/Violent <Haydee Ramirez PA-C - Last Filed: 08/25/25 17:24> Evaluation Findings Date Seen by EDP: 08/24/25 <Haydee Ramirez PA-C - Last Filed: 08/25/25 17:24> Time Seen by EDP: 18:30 <Haydee Ramirez PA-C - Last Filed: 08/25/25 17:24> Pt's immediate situation:: thrashing, attempting to hit and bite staff <SLOAN West Last Filed: 08/25/25 17:24> Pt's reaction to intervention:: patient calmed after sedation medications given <SLOAN West Last Filed: 08/25/25 17:24> Pt's med/behavioral condition:: Agitation <SLOAN West Last Filed: 08/25/25 17:24> Restraint or Seclusion Need Need to continue or terminate:: restraints were able to be removed after sedation medications given <SLOAN Wets Last Filed: 08/25/25 17:24> Discharge Plan Discharge Clinical Impression: Acute metabolic encephalopathy, Hx of seizure disorder, Acute kidney injury Fever Qualifiers: Fever type: unspecified Qualified Code(s): R50.9 - Fever, unspecified <Haydee Ramirez PA-C - Last Filed: 08/25/25 17:24> Patient Disposition: Still a Patient <Haydee Ramirez PA-C - Last Filed: 08/25/25 17:24> Condition: Guarded Prognosis <Haydee Ramirez PA-C - Last Filed: 08/25/25 17:24>
[2025-08-24 19:22] LABS: Alanine Aminotransferase 32 U/L (6-50); Albumin Level 5.1 g/dL (3.5-5.1); Alkaline Phosphatase 103 U/L (38-126); Anion Gap 17 mmol/L (4-12); Aspartate Amino Transferase 53 U/L (17-59); Bilirubin,Total 0.5 mg/dL (0.2-1.3); Blood Urea Nitrogen 15 mg/dL (9-20); Calcium 9.4 mg/dL (8.4-10.2); Carbon Dioxide 14 mmol/L (22-30); Chloride 105 mmol/L (98-107); Creatine Kinase 729 U/L (55-170); Estimated CRCL calculation 65 ml/min; Estimated Glomerular Filt Rate 49; Glucose 97 mg/dL (65-110); Potassium 4.2 mmol/L (3.4-5.0); Sodium 136 mmol/L (137-145); Total Protein 8.2 g/dL (6.3-8.2)
[2025-08-24 19:55] LABS: Hematocrit 33.8 % (42.0-52.0); Hemoglobin 10.4 g/dL (14.0-18.0); Mean Corpuscular HGB Conc 30.8 g/dl (32-36); Mean Corpuscular Hemoglobin 23.7 pg (26-34); Mean Corpuscular Volume 77.2 fl (80-100); Platelet Count Result 436 k/mm3 (150-375); Red Blood Count 4.38 M/mm3 (4.6-6.20); White Blood Count 19.9 K/mm3 (4.5-10.0)
[2025-08-24 20:03] LABS: Influenza A QL RT-PCR Negative (Negative); Influenza B QL RT-PCR Negative (Negative); RSV RNA, RT-PCR Negative (Negative); SARS-CoV-2 RNA PCR Negative (Negative)
[2025-08-24 20:04] LABS: Acetaminophen < 10 ug/mL (10-30); Salicylate < 1.0 mg/dL (2-20)
[2025-08-24 20:06] LABS: INR 1.1; Prothrombin Time 14.7 Seconds (11.1-14.7)
[2025-08-24 20:07] LABS: Partial Thromboplastin Time 21.1 Seconds (22.3-36.8)
[2025-08-24 20:11] LABS: Band Neutrophils Percent 1 % (0-6); Lymphocytes Absolute Manual 0.39 K/mm3 (1.1-4.5); Lymphocytes Percent Manual 2.0 % (18-44); Monocytes Absolute Manual 1.59 K/mm3 (0.1-0.90); Monocytes Percent Manual 8 % (3-9); Neutrophils Absolute Manual 17.91 K/mm3 (1.3-6.7); Neutrophils Percent Manual 89 % (46-73); Total Cells Counted 100
[2025-08-24 20:12] LABS: Microcytosis 1+ (NORMAL); Schistocytes None Seen
[2025-08-24 20:13] LABS: Anisocytosis 2+; Hypochromasia 1+
[2025-08-24] MEDS: levETIRAcetam 1000MG/NACL100ML 1,000 MG/100 ML BAG 400 MG IVPB (20:27)
[2025-08-24 21:17] LABS: Procalcitonin 0.1 ng/mL
[2025-08-24 22:14] LABS: Add Urine Microscopic? YES; Appearance Urine Turbid (Clear); Glucose Urine UA Negative (Negative); Leukocyte Esterase Ur Negative LEU/UL (Negative); Nitrate Urine Negative (Negative); Specific Grav Ur 1.010 (1.001-1.035)
[2025-08-24 22:27] LABS: Cannabinoid Screen Urine Positive (Negative)
--- NOTE | 2025-08-24 23:00 | PC.NURSE ---
Pt aggressive towards RN, security made aware, and ring packer.
[2025-08-24] MEDS: IBUPROFEN IV 400 MG in SODIUM CHLORIDE 0.9% IV 100 ML 208 MG IVPB (23:06)
[2025-08-24] MEDS: diazePAM INJ (*CRX) 10 MG/2 ML SYRINGE 5 MG IV PUSH (23:09)
[2025-08-25] VITALS (16 sets, daily range): BP systolic 97–159; BP diastolic 53–105; PULSE 58–118; RESP 12–24; TEMP 36.8–38.1; O2SAT 96–100; BMI 26.2
[2025-08-25] MEDS: PIPERACILLIN/TAZOBACTAM SOD 4.5 GM in SODIUM CHLORIDE 0.9% IV 100 ML 200 ML IVPB (00:05)
--- NOTE | 2025-08-25 00:29 | PC.NURSE ---
Pt taken to CT on stretcher with tech and security
[2025-08-25] MEDS: diazePAM INJ (*CRX) 10 MG/2 ML SYRINGE 5 MG IM (00:44)
--- NOTE | 2025-08-25 01:20 | ECG_ITS ---
Test Date: 2025-08-25 01:27:31 Measurements Intervals [place] Rate: 66 P: 61 MS: 158 QRS: 37 QRSD: 100 T: 72 QT: 392 QTc: 413 Interpretive Statements SINUS RHYTHM LEFT VENTRICULAR HYPERTROPHY AND ST-T CHANGE CONSIDER INFERIOR INFARCT, AGE INDETERMINATE ABNORMAL ECG No previous ECG available for comparison Electronically Signed On 08-25-2025 07:54:36 PHOTOGRAPHIC PRINTER by Jimmy Gray D.O.
[2025-08-25] MEDS: VANCOMYCIN 1,250 MG/NS 250 ML 1,250 MG/250 ML BAG 166.67 MG IVPB (01:35)
--- NOTE | 2025-08-25 01:36 | PC.NURSE ---
Pt able to use urinal for urine sample.
[2025-08-25] MEDS: OLANZapine 5 MG, WATER, STERILE FOR INJECTION 2.1 ML IM (01:51)
--- NOTE | 2025-08-25 03:30 | PC.NURSE ---
MARICHUY Ramirez made aware unable to get IV access.
[2025-08-25 07:00] LABS: Estimated CRCL calculation 78 ml/min; Estimated Glomerular Filt Rate > 60
--- NOTE | 2025-08-25 07:21 | WPCEDHO ---
ED Hand Off Checklist All vitals saved:yes IV Site documented:yes All med administrations yesdocumented: Triage Note Triage Note Pt tgo ed via EMS and PD. Pt is 08/24/25 18:29 very combative, Pt had a seizure this morning and another one about 1h ago. Pt has a heart surgery recently, per his grandma last seizure was one month ago and he is very aggressive after seizures. pt is hitting and kicking, blood on his mouth noted . pt is confuse and not answering any questions. Allergies CEFTRIAXONE SODIUM Allergy (Mild, Uncoded 04/30/24 09:50) Unknown Patient received Zosyn in April 2024 Family History (Last Reviewed 04/28/24 @ 17:50 by Rodo Pelayo, COMPANION) Father Hypertension Mother Fatty liver Thyroid disease Administered/Completed Medications Discontinued Medications Olanzapine 5 mg/ Sterile Water (2.1 ml) 0 mg IM ONCE STA Stop: 08/25/25 01:33 Last Admin: 08/25/25 01:51 Dose: 5 mg Documented By: KAREEM Diazepam (Diazepam Inj (*Crx) 10 Mg/2 Ml Syringe) 5 mg IV PUSH ONCE STA Stop: 08/24/25 22:42 Last Admin: 08/24/25 23:09 Dose: 5 mg Documented By: KAREEM Diazepam (Diazepam Inj (*Crx) 10 Mg/2 Ml Syringe) 5 mg IM ONCE STA Stop: 08/25/25 00:36 Last Admin: 08/25/25 00:44 Dose: 5 mg Documented By: KAREEM Diazepam (Diazepam Inj (*Crx) 10 Mg/2 Ml Syringe) 5 mg IM ONCE ONE Stop: 08/25/25 04:22 Last Admin: 08/25/25 06:50 Dose: Not Given Documented By: EZG Non-Admin Reason: Order Discontinued Diphenhydramine HCl (Diphenhydramine Hcl Inj 50 Mg/Ml Vial) Confirm Administered Dose 50 mg .ROUTE .STK-MED ONE Stop: 08/24/25 21:21 Last Admin: 08/24/25 23:17 Dose: Not Given Documented By: EZG Non-Admin Reason: See Notes Diphenhydramine HCl (Diphenhydramine Hcl Inj 50 Mg/Ml Vial) 50 mg IV PUSH ONCE STA Stop: 08/24/25 23:34 Last Admin: 08/24/25 23:57 Dose: 50 mg Documented By: DINH Droperidol (Droperidol 5 Mg/2 Ml Vial) Confirm Administered Dose 5 mg .ROUTE .STK-MED ONE Stop: 08/24/25 21:21 Last Admin: 08/24/25 23:17 Dose: Not Given Documented By: KAREEM Non-Admin Reason: See Notes Sodium Chloride (Normal Saline Iv) 1,000 mls @ 999 mls/hr IV CONT .Q1H1M STA Stop: 08/24/25 19:31 Last Infusion: 08/24/25 21:08 Dose: 0 mls/hr Documented By: Admin: 08/24/25 19:05 Dose: 999 mls/hr Documented By: CACHORRO Ibuprofen 400 mg/ Sodium (Chloride) 104 mls @ 208 mls/hr IVPB ONCE STA Stop: 08/24/25 19:12 Last Infusion: 08/24/25 23:54 Dose: Infused Documented By: Admin: 08/24/25 23:06 Dose: 208 mls/hr Documented By: KAREEM Levetiracetam (Keppra Iv) 1,000 mg in 100 mls @ 400 mls/hr IVPB ONCE STA Stop: 08/24/25 19:25 Last Infusion: 08/24/25 20:50 Dose: Infused Documented By: Admin: 08/24/25 20:27 Dose: 400 mls/hr Documented By: KAREEM Piperacillin Sod/Tazobactam (Sod 4.5 gm/ Sodium Chloride) 100 mls @ 200 mls/hr IVPB ONCE STA Stop: 08/24/25 20:13 Last Infusion: 08/25/25 01:44 Dose: Infused Documented By: Admin: 08/25/25 00:05 Dose: 200 mls/hr Documented By: KAREEM Vancomycin HCl (Vancomycin 1,250 Mg/Ns 250 Ml) 1,250 mg in 250 mls @ 166.667 mls/hr IVPB ONCE ONE Stop: 08/24/25 22:29 Last Infusion: 08/25/25 02:04 Dose: 166.67 mls/hr Documented By: Admin: 08/25/25 01:35 Dose: 166.67 mls/hr Documented By: KAREEM Vancomycin HCl (Vancomycin 1,250 Mg/Ns 250 Ml) 1,250 mg in 250 mls @ 166.667 mls/hr IVPB ONCE ONE Stop: 08/24/25 23:59 Last Admin: 08/25/25 03:00 Dose: Not Given Documented By: KAREEM Non-Admin Reason: No IV Access Sodium Chloride (Normal Saline Iv) Confirm Administered Dose 100 mls @ as directed .ROUTE .STK-MED ONE Stop: 08/25/25 00:02 Last Admin: 08/25/25 03:00 Dose: Not Given Documented By: EZG Non-Admin Reason: Duplicate Dose Sodium Chloride (Normal Saline Iv) 1,000 mls @ 999 mls/hr IV CONT .Q1H1M STA Stop: 08/25/25 02:28 Last Admin: 08/25/25 03:00 Dose: Not Given Documented By: EZHermelinda Non-Admin Reason: No IV Access Piperacillin Sod/Tazobactam Sod (Piperacillin/Tazobactam Sodium 3.375 Gm Vial) Confirm Administered Dose 3.375 gm .ROUTE .STK-MED ONE Stop: 08/25/25 00:01 Last Admin: 08/25/25 03:01 Dose: Not Given Documented By: EZG Non-Admin Reason: Duplicate Dose Piperacillin Sod/Tazobactam Sod (Piperacillin/Tazobactam Sodium 4.5 Gm Vial) Confirm Administered Dose 4.5 gm .ROUTE .STK-MED ONE Stop: 08/25/25 00:02 Last Admin: 08/25/25 03:01 Dose: Not Given Documented By: KAREEM Non-Admin Reason: Duplicate Dose Notes 08/25/25 03:30 (created 08/25/25 04:47) Nurse Note by Johanny Murillo made aware unable to get IV access. Initialized on 08/25/25 04:47 - END OF NOTE 08/25/25 01:36 Nurse Note by Johanny Murillo Pt able to use urinal for urine sample. Initialized on 08/25/25 01:36 - END OF NOTE 08/25/25 00:29 Nurse Note by Johanny Murillo Pt taken to [place] on stretcher with tech and security Initialized on 08/25/25 00:29 - END OF NOTE 08/24/25 23:00 (created 08/25/25 06:39) Nurse Note by Johanny Murillo Pt aggressive towards RN, security lexx poole MD and principal solutions architect. Initialized on 08/25/25 06:39 - END OF NOTE Interventions/Assessments IV / Saline Lock, Insert Start: 08/24/25 18:22 Freq: STAT Status: Active Protocol: Document 08/25/25 07:14 EZG (Rec: 08/25/25 07:15 EZG [id number]) IV Assessment Peripheral Access Right Forearm IV Catheter Access Initiated IV Insertion Date 08/25/25 IV Insertion Time 07:15 Catheter Gauge 20 IV Insertion 1 Attempts Ultrasound Used for Yes Placement IV Site Assessment WNL IV Care and WNL Maintenance Peripheral Access Left Hand IV Catheter Access Discontinued Access Peripheral Access Left Antecubital IV Catheter Access Discontinued Access Additional IV removed per pt Comments Peripheral Access Left Hand Additional IV removed per pt Comments Last Vital Signs Temperature 98.8 F 08/25/25 01:37 Pulse Rate 74 08/25/25 06:30 Respiratory Rate 18 08/25/25 06:30 Pulse Oximetry 100 08/25/25 06:30 Blood Pressure 159/55 H 08/25/25 04:01 Blood Pressure Mean 80 08/25/25 04:01 Blood Pressure Position Supine 08/25/25 01:37 Oxygen Delivery Room Air 08/24/25 18:29 Weight 99.47 kg 08/24/25 18:29 Last Result - Abnormals Only WBC 19.9 K/mm3 (4.5-10.0) H 08/24/25 19:49 RBC 4.38 M/mm3 (4.6-6.20) L 08/24/25 19:49 Hgb 10.4 g/dL (14.0-18.0) L 08/24/25 19:49 Hct 33.8 % (42.0-52.0) L 08/24/25 19:49 MCV 77.2 fl (80-100) L 08/24/25 19:49 MCH 23.7 pg (26-34) L 08/24/25 19:49 MCHC 30.8 g/dl (32-36) L 08/24/25 19:49 RDW 15.9 % (11.5-14.5) H 08/24/25 19:49 Plt Count 436 k/mm3 (150-375) H 08/24/25 19:49 Neutrophils % (Manual) 89 % (46-73) H 08/24/25 19:49 Lymphocytes % (Manual) 2.0 % (18-44) L 08/24/25 19:49 Abs Neuts (Manual) 17.91 K/mm3 (1.3-6.7) H 08/24/25 19:49 Abs Lymphs (Manual) 0.39 K/mm3 (1.1-4.5) L 08/24/25 19:49 Abs Monocytes (Manual) 1.59 K/mm3 (0.1-0.90) H 08/24/25 19:49 APTT 21.1 Seconds (22.3-36.8) L 08/24/25 19:49 Sodium 136 mmol/L (137-145) L 08/24/25 19:03 Carbon Dioxide 14 mmol/L (22-30) L 08/24/25 19:03 Anion Gap 17 mmol/L (4-12) H 08/24/25 19:03 Creatinine 1.39 mg/dL (0.7-1.3) H 08/25/25 06:38 Estimated GFR 49 (59-) L 08/24/25 19:03 Lactic Acid 8.5 mmol/L (0.7-2.0) H* 08/24/25 19:03 Total Creatine Kinase 729 U/L (55-170) H 08/24/25 19:03 Urine Appearance Turbid (Clear) H 08/24/25 21:54 Uric Acid Crystals Present /hpf (None) H 08/24/25 21:54 Salicylates < 1.0 mg/dL (2-20) L 08/24/25 19:49 Acetaminophen < 10 ug/mL (10-30) L 08/24/25 19:49 U Benzodiazepines Scrn Positive (Negative) A 08/24/25 21:53 U Cannabinoids Screen Positive (Negative) A 08/24/25 21:53
--- NOTE | 2025-08-25 08:55 | ADMGEN ---
This patient, Nghia Crockett, was admitted to IMU Room 232-01. Patient/family oriented to hospital policies and general routines including ID bracelet, bed and alarms, visiting hours, pain management, procedures, bathroom and other care routines, personal items, smoking policy, room service/diet, and visiting hours. Information on how to activate the Rapid Response Team has been discussed. Patient/Family are encouraged to report perceived risks to care and to ask questions if they do not understand what they are told or what they should do.
--- NOTE | 2025-08-25 10:01 | WPDNEURCNPN ---
Assessment and Plan Assessment and plan (1) Hx of seizure disorder: Code(s): Z86.69 - Personal history of other diseases of the nervous system and sense organs Status: Acute (2) Breakthrough seizure: Code(s): G40.919 - Epilepsy, unspecified, intractable, without status epilepticus Status: Acute (3) Intractable epilepsy: Code(s): G40.919 - Epilepsy, unspecified, intractable, without status epilepticus Status: Acute Plan 1. Postictal state with history of underlying seizure disorder 2. Is status post aortic valve repair in June 18 number 3. Will need the EEG as a baseline while he is being monitored here, in continued all other medication, as he is waiting for the transfer to the [facility]. We need to carry on the seizure because while he is here. Consult date: 08/25/25 HPI: Nghia Crockett is a 29 year old male Being admitted to the hospital through the emergency room where he presented with altered mental status and history of multiple seizures on the day of admission to the ER. Patient does have ongoing history of seizure disorder and history of being extremely combative after the seizures. His medications included 1. [id number] daily 2. Lacosamide 100mg b.i.d. 3. Trazodone 150mg p.r.n. for sleep 4. Zonisamide 200mg at night and 5. Hydroxyzine 25mg t.i.d. p.r.n. he is reportedly allergic to ceftriaxone. He has history of being never a smoker, never alcohol intake or, and on initial examination in the emergency room he was documented to have no acute abnormalities, his vital signs were abnormal with a temp of 101.2?, blood pressure of 164/65, CBC with WBC of 19.9 and hemoglobin of 10.4 with platelet count of 436, creatinine of 1.67, alcohol level less than 10, UA negative, and negative for the screening for influenza a, influenza B, RSV, and SARs COVID, CT scan of the head negative for the bleed, chest x-ray negative, Review of Systems Review of Systems: All systems reviewed & are unremarkable except as noted in HPI and below PMFSH Past Medical History Medical History Anxiety Seizures Surgical History Surgical History H/O elbow surgery Right Family History Family History Father Hypertension Mother Fatty liver Thyroid disease Social History Social History Social History: Single. 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 Sexual Orientation (if Verbalized by the Patient): Straight or Heterosexual Spiritual care concerns: No Meds Home Medications and Allergies Home Medications ?Medication ?Instructions ?Recorded ?Confirmed ?Type hydroxyzine HCl 25 mg tablet 25 mg PO TID PRN Anxiety 04/14/24 08/25/25 History zonisamide 100 mg capsule 600 mg PO HS 04/14/24 08/25/25 History carvedilol 25 mg tablet 25 mg PO BID 08/25/25 08/25/25 History clonidine HCl 0.2 mg tablet 0.2 mg PO TID PRN hypertensive 08/25/25 08/25/25 History emergency gabapentin 600 mg tablet 600 mg PO TID 08/25/25 08/25/25 History lacosamide 50 mg tablet 50 mg PO BID 08/25/25 08/25/25 History magnesium oxide 400 mg (241.3 mg 800 mg PO BID 08/25/25 08/25/25 History magnesium) tablet omeprazole 40 mg capsule,delayed 40 mg PO DAILY 08/25/25 08/25/25 History release quetiapine 100 mg tablet 100 mg PO DAILY 08/25/25 08/25/25 History sertraline 25 mg tablet 25 mg PO DAILY 08/25/25 08/25/25 History spironolactone 25 mg tablet 25 mg PO DAILY 08/25/25 08/25/25 History Allergies Allergy/AdvReac Type Severity Reaction Status Date / Time ceftriaxone Allergy Mild Verified 08/25/25 10:51 Vital Signs Vital Signs - 24 hr 08/24/25 18:29 08/24/25 19:01 08/24/25 20:17 Temperature 38.4 C H Pulse Rate 117 H 86 90 Respiratory Rate 20 18 19 Blood Pressure 164/65 H 157/66 H 141/72 H Pulse Oximetry 100 Oxygen Delivery Room Air 08/24/25 20:29 08/24/25 20:31 08/24/25 20:46 Temperature 38.3 C H Pulse Rate 84 78 Respiratory Rate 24 H 13 Blood Pressure 141/72 H 141/88 H 127/73 Pulse Oximetry 96 100 Oxygen Delivery 08/24/25 23:06 08/25/25 00:50 08/25/25 01:37 Temperature 37.8 C H 37.1 C Pulse Rate 82 Respiratory Rate 24 H Blood Pressure 129/53 L 133/103 H Pulse Oximetry 96 Oxygen Delivery 08/25/25 01:40 08/25/25 04:01 08/25/25 04:30 Temperature Pulse Rate 75 67 Respiratory Rate 17 17 Blood Pressure 133/105 H 159/55 H Pulse Oximetry 96 100 100 Oxygen Delivery 08/25/25 04:45 08/25/25 05:31 08/25/25 06:30 Temperature Pulse Rate 61 63 74 Respiratory Rate 17 14 18 Blood Pressure Pulse Oximetry 100 100 100 Oxygen Delivery 08/25/25 08:18 Temperature 36.8 C Pulse Rate 58 L Respiratory Rate 12 Blood Pressure 112/63 Pulse Oximetry 98 Oxygen Delivery Exam Narrative: Exam this morning revealed him to be awake but not responding to the verbal commands appropriately father happen to be in the room who gave the further information, head was normocephalic with no bruit, ear nose throat exam was normal, neck was supple with no meningeal signs, heart was regular with murmur, lungs clear to auscultation with no rhonchi or crepitations, abdomen is soft nontender with normal bowel sounds, neurologically he was awake with wandering eyes no spontaneous speech and no communication with the physician, extraocular movements full in the horizontal gaze is spontaneously with no nystagmus facial grimace was symmetrical he was able to move both upper and lower extremities spontaneously and reflexes 1+ plantar responses were questionable. Results Labs 08/25/25 06:38 08/25/25 06:38 Labs: Short CBC 08/24/25 Range/Units 19:49 WBC 19.9 H (4.5-10.0) K/mm3 Hgb 10.4 L (14.0-18.0) g/dL Hct 33.8 L (42.0-52.0) % Plt Count 436 H (150-375) k/mm3 BMP 08/24/25 08/25/25 19:03 06:38 Sodium 136 L Potassium 4.2 Chloride 105 Carbon Dioxide 14 L BUN 15 D Creatinine 1.67 H 1.39 H Glucose 97 Calcium 9.4 Cardiac Enzymes 08/24/25 08/24/25 Range/Units 19:03 19:03 Total Creatine Kinase 729 H Cancelled (55-170) U/L Liver Function 08/24/25 Range/Units 19:03 Total Bilirubin 0.5 (0.2-1.3) mg/dL AST 53 (17-59) U/L ALT 32 (6-50) U/L Alkaline Phosphatase 103 (38-126) U/L Albumin 5.1 (3.5-5.1) g/dL Urine 08/24/25 Range/Units 21:54 Urine Color Yellow (Yellow) Urine Appearance Turbid H (Clear) Urine pH 5.5 (5.0-9.0) Ur Specific [place] 1.010 (1.001-1.035) Urine Protein Negative (Negative) mg/dL Urine Glucose (UA) Negative (Negative) mg/dL
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
[2025-08-25 10:55] LABS: Hematocrit 36.5 % (42.0-52.0); Hemoglobin 11.3 g/dL (14.0-18.0); Immature Granulocyte Percent A 0.4 % (0-0.5); Lymphocytes Absolute Auto 1.60 K/mm3 (0.9-3.2); Mean Corpuscular HGB Conc 31.0 g/dl (32-36); Mean Corpuscular Hemoglobin 23.8 pg (26-34); Mean Corpuscular Volume 76.8 fl (80-100); Nucleated Red Blood Cells Absolute Auto 0.000 K/mm3 (0.0-0.012); Nucleated Red Blood Cells Perc 0.0 % (0.0-0.2); Platelet Count Result 430 k/mm3 (150-375); Red Blood Count 4.75 M/mm3 (4.6-6.20); White Blood Count 16.8 K/mm3 (4.5-10.0)
[2025-08-25 11:43] LABS: Alanine Aminotransferase 34 U/L (6-50); Albumin Level 5.0 g/dL (3.5-5.1); Alkaline Phosphatase 111 U/L (38-126); Anion Gap 11 mmol/L (4-12); Aspartate Amino Transferase 151 U/L (17-59); Bilirubin,Total 0.8 mg/dL (0.2-1.3); Blood Urea Nitrogen 16 mg/dL (9-20); Calcium 9.5 mg/dL (8.4-10.2); Carbon Dioxide 16 mmol/L (22-30); Chloride 108 mmol/L (98-107); Creatine Kinase 8922 U/L (55-170); Glucose 112 mg/dL (65-110); Magnesium 2.7 mg/dL (1.6-2.3); Potassium 4.3 mmol/L (3.4-5.0); Sodium 135 mmol/L (137-145); Total Protein 8.4 g/dL (6.3-8.2)
[2025-08-25] MEDS: SODIUM CHLORIDE 0.9% IV 1,000 ML 125 ML IV CONT (12:16)
[2025-08-25] MEDS: GABAPENTIN 300 MG CAPSULE 600 MG PO ×2 (12:17→17:37)
[2025-08-25] MEDS: PANTOPRAZOLE 40 MG TABLET PO ×2 (12:17→20:52)
[2025-08-25] MEDS: PIPERACILLIN/TAZOBACTAM SOD 3.375 GM in SODIUM CHLORIDE 0.9% IV 50 ML 100 ML IVPB ×2 (12:17→17:37)
[2025-08-25] MEDS: LACOSAMIDE (*CRX) 50 MG TABLET PO (12:17)
[2025-08-25] MEDS: SPIRONOLACTONE 25 MG TABLET PO (12:18)
[2025-08-25] MEDS: MAGNESIUM OXIDE 400 MG TABLET 800 MG PO (12:18)
[2025-08-25] MEDS: SERTRALINE HCL 25 MG TABLET PO (12:18)
--- NOTE | 2025-08-25 17:08 | PC.NURSE ---
Left message on patient mothers phone as she called twice for updates. Patient's father remains at bedside and has been updated on all cares related to patient by this RN and MD.
[2025-08-25] MEDS: LACOSAMIDE (*CRX) 50 MG TABLET 150 MG PO (17:39)
--- NOTE | 2025-08-25 18:35 | PC.NURSE ---
This patient, Nghia Crockett, was received from [facility] on 08/25/25 at 1835. Patient/family oriented to unit policies and routines
[2025-08-25] MEDS: ZONISAMIDE 100 MG CAPSULE 600 MG PO (20:53)
[2025-08-25] MEDS: VANCOMYCIN 1,500 MG/NS 500 ML 1,500 MG/500 ML BAG 250 MG IVPB (20:53)
[2025-08-26] MEDS: PIPERACILLIN/TAZOBACTAM SOD 3.375 GM in SODIUM CHLORIDE 0.9% IV 50 ML 100 ML IVPB ×5 (00:13→23:45)
[2025-08-26] MEDS: SODIUM CHLORIDE 0.9% IV 1,000 ML 125 ML IV CONT (00:16)
[2025-08-26 05:31] VITALS: BP 128/59; PULSE 65; RESP 16; TEMP 37.1; O2SAT 98
--- NOTE | 2025-08-26 06:08 | PC.NURSE ---
pt c/o of numbness to left arm radiating up to forearm. pt is not c/o of any other symptoms at this time. pt able to move arm and hand back and forth but while doing so he states It feels this nurse called Yudith and new order for CT Scan of brain w/o contrast was ordered and currently awaiting to be completed. pt is aware alert and oriented x4
--- NOTE | 2025-08-26 06:18 | PC.NURSE ---
pt has just left for cat scan at this time
[2025-08-26 06:57] LABS: Estimated CRCL calculation 114 ml/min; Estimated Glomerular Filt Rate > 60
[2025-08-26 07:33] LABS: Creatine Kinase 10978 U/L (55-170)
[2025-08-26 08:04] LABS: Hematocrit 32.6 % (42.0-52.0); Hemoglobin 10.2 g/dL (14.0-18.0); Immature Granulocyte Percent A 0.3 % (0-0.5); Lymphocytes Absolute Auto 1.58 K/mm3 (0.9-3.2); Mean Corpuscular HGB Conc 31.3 g/dl (32-36); Mean Corpuscular Hemoglobin 23.8 pg (26-34); Mean Corpuscular Volume 76.2 fl (80-100); Nucleated Red Blood Cells Absolute Auto 0.000 K/mm3 (0.0-0.012); Nucleated Red Blood Cells Perc 0.0 % (0.0-0.2); Platelet Count Result 349 k/mm3 (150-375); Red Blood Count 4.28 M/mm3 (4.6-6.20); White Blood Count 10.7 K/mm3 (4.5-10.0)
[2025-08-26 08:17] LABS: Alanine Aminotransferase 57 U/L (6-50); Albumin Level 4.0 g/dL (3.5-5.1); Alkaline Phosphatase 96 U/L (38-126); Anion Gap 4 mmol/L (4-12); Aspartate Amino Transferase 209 U/L (17-59); Bilirubin,Total 0.6 mg/dL (0.2-1.3); Blood Urea Nitrogen 10 mg/dL (9-20); Calcium 8.9 mg/dL (8.4-10.2); Carbon Dioxide 21 mmol/L (22-30); Chloride 113 mmol/L (98-107); Glucose 125 mg/dL (65-110); Potassium 3.5 mmol/L (3.4-5.0); Sodium 138 mmol/L (137-145); Total Protein 6.8 g/dL (6.3-8.2)
[2025-08-26] MEDS: LACOSAMIDE (*CRX) 50 MG TABLET 150 MG PO ×2 (08:48→17:27)
[2025-08-26] MEDS: GABAPENTIN 300 MG CAPSULE 600 MG PO ×3 (08:48→17:27)
[2025-08-26 08:49] VITALS: PULSE 65
[2025-08-26] MEDS: SERTRALINE HCL 25 MG TABLET PO (08:49)
[2025-08-26] MEDS: SPIRONOLACTONE 25 MG TABLET PO (08:49)
[2025-08-26] MEDS: PANTOPRAZOLE 40 MG TABLET PO ×2 (08:49→20:08)
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
--- NOTE | 2025-08-26 13:26 | WPDCNPSYCH ---
Assessment and Plan Assessment and plan (1) Anxiety: Code(s): F41.9 - Anxiety disorder, unspecified Status: Acute Assessment and Plan: ? Increase sertraline to 50 mg daily to begin titration toward therapeutic range, as tolerated. ? Resume quetiapine 100 mg nightly as originally prescribed for sleep. ? Continue Hydroxyzine 25 mg TID PRN for anxiety. ? Encourage cessation or reduction of cannabis wax use, especially high-potency forms, as this may worsen anxiety and cognitive symptoms. ? Provide patient with options for outpatient psychiatric follow-up, including referral to [facility] after discharge. ? Reassess mood/anxiety symptoms once patient is fully recovered from the postictal state and medically stabilized. HPI Data of Consult Date/Time: 08/26/25 13:26 Requesting Physician: Cory dougherty Oca, MD Primary Care Provider: Joe Lyons, Consult Narrative Narrative: Nghia Crockett is a 29 year old male with a history of seizure disorder and recent aortic valve replacement who reports that his depressive and anxiety symptoms worsen in relation to his seizures and cardiac condition. He is distressed that he has been unable to drive for the past 2 years. He reports he has been taking sertraline 25 mg daily for at least 6 months without noticeable improvement and quetiapine 100 mg nightly for approximately one year, originally prescribed by his PCP for sleep. He has hydroxyzine PRN for anxiety but has not used it recently. During the interview the patient was postictal, with slowed responses and intermittent confusion. He became tearful during assessment and requested a new psychiatric care provider after discharge. Screening Scores ? Stern Depression Inventory (BDI-II): 13 - Mild depressive symptoms ? PHQ-9: 7 - Mild depression ? CHALO-7: 6 - Mild anxiety Psychiatric Symptoms Reported ? Loss of interest or pleasure in activities ? Excessive worry, especially related to medical conditions ? Low energy and poor appetite ? Difficulty concentrating (patient attributes to postictal state) ? Racing thoughts ? Occasional irritability Denied ? Suicidal or homicidal ideation ? Hallucinations, delusions, paranoia ? History of manic episodes Substance Use ? Marijuana wax (primarily Indica). Unsure of amount used. ? No recent alcohol use per labs (ethanol <10). Medication History ? Current: sertraline 25 mg daily, quetiapine 100 mg HS, hydroxyzine PRN (not currently using). ? Past: trial of fluoxetine?dose/duration unknown. ? Other medical medications include zonisamide, gabapentin, lacosamide, carvedilol, clonidine, spironolactone, magnesium oxide, omeprazole. [facility] Past Medical History Medical History Anxiety Seizures Surgical History Surgical History H/O elbow surgery Right Family History Family History Father Hypertension Mother Fatty liver Thyroid disease Social History Social History Social History: Single. 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 Sexual Orientation (if Verbalized by the Patient): Straight or Heterosexual Spiritual care concerns: No Meds Home Medications and Allergies Home Medications ?Medication ?Instructions ?Recorded ?Confirmed ?Type hydroxyzine HCl 25 mg tablet 25 mg PO TID PRN Anxiety 04/14/24 08/25/25 History zonisamide 100 mg capsule 600 mg PO HS 04/14/24 08/25/25 History carvedilol 25 mg tablet 25 mg PO BID 08/25/25 08/25/25 History clonidine HCl 0.2 mg tablet 0.2 mg PO TID PRN hypertensive 08/25/25 08/25/25 History emergency gabapentin 600 mg tablet 600 mg PO TID 08/25/25 08/25/25 History lacosamide 50 mg tablet 50 mg PO BID 08/25/25 08/25/25 History magnesium oxide 400 mg (241.3 mg 800 mg PO BID 08/25/25 08/25/25 History magnesium) tablet omeprazole 40 mg capsule,delayed 40 mg PO DAILY 08/25/25 08/25/25 History release quetiapine 100 mg tablet 100 mg PO DAILY 08/25/25 08/25/25 History sertraline 25 mg tablet 25 mg PO DAILY 08/25/25 08/25/25 History spironolactone 25 mg tablet 25 mg PO DAILY 08/25/25 08/25/25 History Allergies Allergy/AdvReac Type Severity Reaction Status Date / Time ceftriaxone Allergy Mild Verified 08/25/25 10:51 Vital Signs Vital Signs - 24 hr 08/25/25 14:00 08/25/25 16:00 08/25/25 16:00 Temperature 99.8 F H Pulse Rate 118 H 78 73 Respiratory Rate 16 20 Blood Pressure 108/61 Pulse Oximetry 100 99 Oxygen Delivery Room Air 08/25/25 16:00 08/25/25 17:37 08/25/25 20:23 Temperature 99.5 F Pulse Rate 73 74 88 Respiratory Rate 16 Blood Pressure 105/54 L Pulse Oximetry 96 Oxygen Delivery 08/26/25 05:31 08/26/25 08:49 08/26/25 08:50 Temperature 98.7 F Pulse Rate 65 65 Respiratory Rate 16 Blood Pressure 128/59 L Pulse Oximetry 98 Oxygen Delivery Room Air Exam Psych: Other: Objective / Mental Status (focused) ? Appearance: postictal, fatigued, slowed psychomotor activity ? Speech: delayed responses but coherent ? Affect: tearful, constricted ? Mood: ?anxious and upset? ? Thought process: linear when able to respond; no loosening of associations ? Thought content: no SI/HI; no psychosis ? Insight: fair ? Judgment: impaired by medical condition/postictal state ? Cognition: slowed; likely postictal effect Results Labs 08/26/25 05:53 08/26/25 05:54 Labs: Short CBC 08/26/25 Range/Units 05:53 WBC 10.7 H (4.5-10.0) K/mm3 Hgb 10.2 L (14.0-18.0) g/dL Hct 32.6 L (42.0-52.0) % Plt Count 349 (150-375) k/mm3 BMP 08/26/25 05:54 Sodium 138 Potassium 3.5 Chloride 113 H Carbon Dioxide 21 L BUN 10 D Creatinine 1.02 Glucose 125 H Calcium 8.9 Cardiac Enzymes 08/26/25 Range/Units 05:54 Total Creatine Kinase 93899 H (55-170) U/L Liver Function 08/26/25 Range/Units 05:54 Total Bilirubin 0.6 (0.2-1.3) mg/dL AST 209 H (17-59) U/L ALT 57 H (6-50) U/L Alkaline Phosphatase 96 (38-126) U/L Albumin 4.0 (3.5-5.1) g/dL
[2025-08-26] MEDS: VANCOMYCIN 1,500 MG/NS 500 ML 1,500 MG/500 ML BAG 250 MG IVPB (14:30)
[2025-08-26 15:52] LABS: MRSA (PCR) NOT DETECTED (NOT DETECTE)
[2025-08-26 16:00] VITALS: BP 133/75; PULSE 70; RESP 20; TEMP 37; O2SAT 98
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
[2025-08-26 17:28] VITALS: PULSE 70
[2025-08-26] MEDS: ZONISAMIDE 100 MG CAPSULE 600 MG PO (20:08)
[2025-08-26 21:24] VITALS: BP 146/68; PULSE 62; RESP 18; TEMP 37.2; O2SAT 100
[2025-08-27] MEDS: VANCOMYCIN 1,500 MG/NS 500 ML 1,500 MG/500 ML BAG 250 MG IVPB (01:12)
[2025-08-27 05:10] VITALS: BP 159/72; PULSE 68; RESP 18; TEMP 37.2; O2SAT 100
[2025-08-27] MEDS: PIPERACILLIN/TAZOBACTAM SOD 3.375 GM in SODIUM CHLORIDE 0.9% IV 50 ML 100 ML IVPB ×2 (05:30→12:25)
[2025-08-27 06:40] LABS: Estimated CRCL calculation 130 ml/min; Estimated Glomerular Filt Rate > 60
[2025-08-27 08:00] VITALS: BP 148/96; PULSE 75; RESP 18; TEMP 36.8; O2SAT 100
[2025-08-27] MEDS: diazePAM INJ (*CRX) 10 MG/2 ML SYRINGE 5 MG IV PUSH ×2 (08:28→16:46)
[2025-08-27 09:03] VITALS: PULSE 75
[2025-08-27] MEDS: PANTOPRAZOLE 40 MG TABLET PO ×2 (09:03→20:08)
[2025-08-27] MEDS: SPIRONOLACTONE 25 MG TABLET PO (09:03)
[2025-08-27] MEDS: SERTRALINE HCL 50 MG TABLET PO (09:03)
[2025-08-27] MEDS: LACOSAMIDE (*CRX) 50 MG TABLET 150 MG PO ×2 (09:03→16:56)
[2025-08-27] MEDS: GABAPENTIN 300 MG CAPSULE 600 MG PO ×3 (09:03→16:56)
[2025-08-27 09:08] LABS: Hematocrit 33.1 % (42.0-52.0); Hemoglobin 10.2 g/dL (14.0-18.0); Immature Granulocyte Percent A 0.4 % (0-0.5); Lymphocytes Absolute Auto 1.51 K/mm3 (0.9-3.2); Mean Corpuscular HGB Conc 30.8 g/dl (32-36); Mean Corpuscular Hemoglobin 23.9 pg (26-34); Mean Corpuscular Volume 77.5 fl (80-100); Nucleated Red Blood Cells Absolute Auto 0.000 K/mm3 (0.0-0.012); Nucleated Red Blood Cells Perc 0.0 % (0.0-0.2); Platelet Count Result 348 k/mm3 (150-375); Red Blood Count 4.27 M/mm3 (4.6-6.20); White Blood Count 12.3 K/mm3 (4.5-10.0)
[2025-08-27 09:31] LABS: Alanine Aminotransferase 81 U/L (6-50); Albumin Level 4.2 g/dL (3.5-5.1); Alkaline Phosphatase 94 U/L (38-126); Anion Gap 6 mmol/L (4-12); Aspartate Amino Transferase 223 U/L (17-59); Bilirubin,Total 0.4 mg/dL (0.2-1.3); Blood Urea Nitrogen 8 mg/dL (9-20); Calcium 9.3 mg/dL (8.4-10.2); Carbon Dioxide 19 mmol/L (22-30); Chloride 116 mmol/L (98-107); Estimated CRCL calculation 128 ml/min; Estimated Glomerular Filt Rate > 60; Glucose 130 mg/dL (65-110); Magnesium 1.7 mg/dL (1.6-2.3); Potassium 3.5 mmol/L (3.4-5.0); Sodium 141 mmol/L (137-145); Total Protein 7.0 g/dL (6.3-8.2)
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
[2025-08-27] MEDS: ACETAMINOPHEN 325 MG TABLET 650 MG PO ×2 (13:55→20:14)
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
[2025-08-27 16:45] VITALS: BP 143/77; PULSE 71; O2SAT 100
[2025-08-27 16:56] VITALS: PULSE 71
[2025-08-27 20:05] VITALS: BP 136/79; PULSE 89; RESP 20; TEMP 37.3; O2SAT 99
[2025-08-27] MEDS: ZONISAMIDE 100 MG CAPSULE 600 MG PO (20:08)
[2025-08-28 06:05] VITALS: BP 148/74; PULSE 77; RESP 20; TEMP 36.7; O2SAT 99
[2025-08-28] MEDS: ONDANSETRON INJ 4 MG/2 ML VIAL IV PUSH (06:47)
[2025-08-28 07:27] LABS: Hematocrit 34.8 % (42.0-52.0); Hemoglobin 10.7 g/dL (14.0-18.0); Mean Corpuscular HGB Conc 30.7 g/dl (32-36); Mean Corpuscular Hemoglobin 23.7 pg (26-34); Mean Corpuscular Volume 77.2 fl (80-100); Platelet Count Result 408 k/mm3 (150-375); Red Blood Count 4.51 M/mm3 (4.6-6.20); White Blood Count 9.8 K/mm3 (4.5-10.0)
[2025-08-28 07:46] LABS: Anion Gap 8 mmol/L (4-12); Blood Urea Nitrogen 8 mg/dL (9-20); Calcium 9.3 mg/dL (8.4-10.2); Carbon Dioxide 17 mmol/L (22-30); Chloride 116 mmol/L (98-107); Estimated CRCL calculation 140 ml/min; Estimated Glomerular Filt Rate > 60; Glucose 118 mg/dL (65-110); Magnesium 1.5 mg/dL (1.6-2.3); Potassium 3.6 mmol/L (3.4-5.0); Sodium 141 mmol/L (137-145)
[2025-08-28 08:26] VITALS: BP 140/85; PULSE 84; RESP 20; O2SAT 99
[2025-08-28 08:29] VITALS: PULSE 84
[2025-08-28] MEDS: SPIRONOLACTONE 25 MG TABLET PO (08:29)
[2025-08-28] MEDS: LACOSAMIDE (*CRX) 50 MG TABLET 150 MG PO (08:29)
[2025-08-28] MEDS: PANTOPRAZOLE 40 MG TABLET PO (08:29)
[2025-08-28] MEDS: GABAPENTIN 300 MG CAPSULE 600 MG PO ×2 (08:29→12:48)
[2025-08-28] MEDS: SERTRALINE HCL 50 MG TABLET PO (08:29)
[2025-08-28] MEDS: MAGNESIUM SULF 2 GM/WATER 50ML 2 GM/50 ML BAG IVPB (10:18)
--- NOTE | 2025-08-28 14:15 | PC.NURSE ---
Christie, patient's mother, called asking for clarification on patient's locosamide. Patient was taking 100mg BID at home before being admitted to hospital. Patient was taking 150mg PO here BID. Discharge paperwork states for patient to take 100mg BID. Spoke with Dr. Anderson and patient is to take 150mg BID and he will send over a prescription to [facility] for patient. Returned call to Christie and informed her that he is to take locosamide 150mg PO BID and a prescription is being sent to the pharmacy. She states that patient has 100mg tablets at home and told her that they could split a tablet in half (if able to per tablets instructions) to make 150mg. Christie stated she understood.
--- NOTE | 2025-08-28 15:22 | PC.NURSE ---
Script for Lacosamide 150 mg left here after discharge. Dr Anderson signed script. Christie notified by phone that script needed to be order picker. Christie stated that she would pick it up on 08/29/25.
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
== END 2025-08-28 13:30 | disposition home or self-care (01) ==
LOC: ANHED 08-25 04:35 → ANHIMU 08-25 07:13 → ANH3MEDSUR 08-26 10:46 → ANHIMU 08-31 09:14
PROVIDERS: Internal Medicine; Admitting Provider Student in an Organized Health Care Education/Training Program; Emergency Provider Physician Assistant; PCP Internal Medicine; Visit Provider Family Medicine
DX: G40.919 Epilepsy, unspecified, intractable, without status epilepticus (principal); F05 Delirium due to known physiological condition; R50.9 Fever, unspecified; D72.829 Elevated white blood cell count, unspecified; R94.01 Abnormal electroencephalogram [EEG]; R94.31 Abnormal electrocardiogram [ECG] [EKG]; J98.11 Atelectasis; N17.9 Acute kidney failure, unspecified; F41.9 Anxiety disorder, unspecified; F12.90 Cannabis use, unspecified, uncomplicated; Z20.822 Contact with and (suspected) exposure to COVID-19; Z86.69 Personal history of other diseases of the nervous system and sense organs; Z82.49 Family history of ischemic heart disease and other diseases of the circulatory system; Z83.49 Family history of other endocrine, nutritional and metabolic diseases; Z83.79 Family history of other diseases of the digestive system
CPT/HCPCS: 36415; 70450; 70551; 70553; 71045; 71250; 74176; 80048; 80053; 80143; 80179; 80202; 80307; 81001; 82077; 82550; 82565; 82948; 83605; 83735; 84145; 85025; 85027; 85610; 85730; 87040; 87637; 87641; 93005; 95816; 96361; 96365; 96367; 96375; 99285; A9270; J1200; J1741; J1790; J1953; J2359; J2405; J2543; J3360; J3373; J3475; J7030